=== PATIENT | male | born 1945 | race Caucasian/White ===

== ENCOUNTER 2019-04-25 03:27 | Emergency (ER) | payer OTHER ==
[2019-04-25 04:24] LABS: Basophils % 0.9 % (0-1.3)
[2019-04-25 04:27] LABS: Absolute Lymphocytes (CBC) 0.8 K/uL (0.7-4.9); Hematocrit 45.9 % (39.6-49.0); Lymphocytes % 17.6 % (15.3-44.8); MPV 7.6 fL (7.6-11.3); RBC Red Blood Cell Count 5.68 M/uL (4.33-5.43)
[2019-04-25] MEDS ORDERED: ONDANSETRON 4 MG/2 ML VIAL ONE (04:44)
[2019-04-25] MEDS ORDERED: MORPHINE 2 MG/ML SYR ONE ×2 (04:44→05:55)
[2019-04-25] MEDS ORDERED: NA CHLORIDE 0.9% 1,000 ML ONE (04:44)
[2019-04-25 04:50] LABS: ALT/SGPT 23 U/L (12-78); AST/SGOT 22 U/L (15-37); Albumin 3.9 g/dL (3.4-5.0); Alkaline Phosphatase 97 U/L (45-117); BUN Blood Urea Nitrogen 22 mg/dL (7-18); Bicarbonate 25 mmol/L (21-32); Bilirubin Direct < 0.1 mg/dL (0-0.2); Bilirubin Total 0.4 mg/dL (0.2-1.0); Glucose Level 187 mg/dL (74-106); Lipase 116 U/L (73-393); Potassium 4.2 mmol/L (3.5-5.1); Protein, Total 7.5 g/dL (6.4-8.2); Sodium Level 139 mmol/L (136-145)
--- NOTE | 2019-04-25 06:25 | ER ---
Nurse's Notes [facility] Name: Gavin Fernandes Age: 74 yrs Sex: Male : 1945 Arrival Date: 04/25/2019 Time: 03:29 Bed 17 Private MD: Diagnosis: Low back pain;Urinary tract infection, site not specified Presentation: 04/25 03:43 Presenting complaint: Patient states: low back pain since yesterday and states last aa1 time he had this type of pain it was a kidney stone. Denies any other symptoms at this time. Transition of care: patient was not received from another setting of care. Onset of symptoms was April 24, 2019. Risk Assessment: Do you want to hurt yourself or someone else? Patient reports no desire to harm self or others. Initial Sepsis Screen: Does the patient meet any 2 criteria? No. Patient's initial sepsis screen is negative. Does the patient have a suspected source of infection? No. Patient's initial sepsis screen is negative. Care prior to arrival: None. 03:43 Method Of Arrival: Ambulatory aa1 03:43 Acuity: MARY 3 aa1 Triage Assessment: 03:57 General: Appears in no apparent distress. comfortable, Behavior is calm, cooperative, aa1 appropriate for age. Historical: - Allergies: 03:57 No Known Allergies; aa1 - Home Meds: 03:57 amlodipine 5 mg tab 1 tab once daily [Active]; ascorbic acid (vitamin C) 1,000 mg tab aa1 twice a day [Active]; aspirin 81 mg Oral TbEC 1 tab once daily [Active]; calcium carbonate 500 mg calcium (1,250 mg) Oral chew daily [Active]; cetirizine 10 mg oral tab 1 tab once daily [Active]; cyanocobalamin (vitamin B-12) 5,000 mcg oral TbDL daily [Active]; Lexapro 20 mg Oral tab 1 tab once daily [Active]; everolimus oral oral 2 tabs 2 mg in am and 2.5 mg in pm [Active]; ferrous gluconate 236 mg (27 mg iron) Oral tab daily [Active]; gabapentin 600 mg oral tab twice a day [Active]; Insulin Glargine Sub-Q 20 unit daily [Active]; magnesium oxide 420 mg Oral tab 2 tab twice a day [Active]; metoprolol tartrate 25 mg Oral tab 2 tabs 2 times per day [Active]; Lovaza 1 gram oral cap 1 caps 2 times per day [Active]; Prilosec 40 mg Oral cpDR 1 cap once daily [Active]; tacrolimus 1 mg oral cap 2 cap every 12 hours [Active]; - PMHx: 03:57 Atrial Fib; chronic low platelets; Cirrhosis; hepatic carcinoma; Hepatitis; Diabetes - aa1 IDDM; Depression; Anxiety; Hypertension; Arthritis; - PSHx: 03:57 liver transplant; lariat procedure; aa1 - Immunization history:: Flu vaccine is up to date. Adult Immunizations up to date. - Coronavirus screen:: The patient has NOT traveled to [place] in the past 14 days. Proceed with normal triage process as indicated. The patient has NOT traveled to [place] in the past 14 days. - Social history:: Smoking status: Patient/guardian denies using tobacco, but has a distant history of tobacco abuse, Smoking status: Patient/guardian denies using. - Family history:: not pertinent. - Ebola Screening: : No symptoms or risks identified at this time Patient negative for fever greater than or equal to 101.5 degrees Fahrenheit, and additional compatible Ebola Virus Disease symptoms Patient denies exposure to infectious person. Screenin:56 Abuse screen: Denies threats or abuse. Denies injuries from another. Nutritional wh screening: No deficits noted. Tuberculosis screening: No symptoms or risk factors identified. Fall Risk None identified. Assessment: 03:59 General: Appears in no apparent distress. Pain: Complains of pain in lumbar area, left wh low back and right low back Pain does not radiate. Pain currently is 6 out of 10 on a pain scale. Quality of pain is described as aching, Pain began 1 day ago. Neuro: Level of Consciousness is awake, alert, obeys commands, Oriented to person, place, time, situation, Appropriate for age. Cardiovascular: Heart tones S1 S2. Respiratory: Airway is patent Respiratory effort is even, unlabored, Respiratory pattern is regular, symmetrical, Breath sounds are clear bilaterally. GI: Abdomen is flat, non-distended, Abd is soft and non tender X 4 quads. : No signs and/or symptoms were reported regarding the genitourinary system. EENT: No signs and/or symptoms were reported regarding the EENT system. Derm: Skin is intact, is healthy with good turgor, Skin is pink, warm \T\ dry. normal. Musculoskeletal: Circulation, motion, and sensation intact. 05:00 Reassessment: Patient appears in no apparent distress at this time. No changes from previously documented assessment. Patient and/or family updated on plan of care and expected duration. Pain level reassessed. Patient is alert, oriented x 3, equal unlabored respirations, skin warm/dry/pink. 06:30 Reassessment: Patient appears in no apparent distress at this time. No changes from previously documented assessment. Patient and/or family updated on plan of care and expected duration. Pain level reassessed. Patient is alert, oriented x 3, equal unlabored respirations, skin warm/dry/pink. Patient states feeling better. Patient states symptoms have improved. Vital Signs: 03:56 BP 156 / 87; Pulse 68; Resp 18; Temp 97.9; Pulse Ox 99% ; Weight 80.74 kg; Height 5 ft. 6 in. (167.64 cm); Pain 6/10; 05:01 BP 145 / 79; Pulse 62; Resp 18; Pulse Ox 99% on R/A; 06:30 BP 143 / 74; Pulse 62; Resp 18; Pulse Ox 99% on R/A; 03:56 Body Mass Index 28.73 (80.74 kg, 167.64 cm) ED Course: 03:29 Patient arrived in ED. ag3 03:30 True Alba MD is Attending Physician. rhys 03:33 Ang Dorantes is Primary Nurse. 03:46 Triage completed. aa1 04:02 Arm band placed on right wrist. 04:02 Patient has correct armband on for positive identification. Bed in low position. Call light in reach. Side rails up X 1. Pulse ox on. NIBP on. 04:02 Inserted saline lock: 20 gauge in right antecubital area, using aseptic technique. Blood collected. 05:02 CT Stone Protocol In Process Unspecified. EDMS 06:46 No provider procedures requiring assistance completed. IV discontinued, intact, bleeding controlled, No redness/swelling at site. Administered Medications: 04:36 Drug: NS 0.9% 1000 ml Route: IV; Rate: 1 bolus; Site: right antecubital; 05:59 Follow up: Response: No adverse reaction; IV Status: Completed infusion 04:38 Drug: morphine 2 mg Route: IVP; Site: right antecubital; 04:40 Drug: Zofran 4 mg Route: IVP; Site: right antecubital; 05:59 Follow up: Response: No adverse reaction; Nausea is decreased 05:59 Drug: morphine 2 mg Route: IVP; Site: right antecubital; 05:59 Follow up: Response: No adverse reaction; Pain is decreased; RASS: Alert and Calm (0) 06:35 Drug: Rocephin 1 grams Route: IV; Rate: per protocol; Site: right antecubital; 06:49 Follow up: Response: No adverse reaction; IV Status: Completed infusion Outcome: 06:24 Discharge ordered by MD. joiner 06:46 Discharged to home ambulatory, with family. 06:46 Condition: stable 06:46 Discharge instructions given to patient, family, Instructed on discharge instructions, follow up and referral plans. no drinking with medication, no driving heavy equipment, medication usage, POC Demonstrated understanding of instructions, follow-up care, medications, POC Prescriptions given X 3. 07:09 Patient left the ED. [email or web address] Signatures: Dispatcher [employer] EDMS Dior Tyler RN RN aa1 True Alba MD MD cha Leal, Jahala, RN RN jl7 Ang Dorantes Alice ag3
--- NOTE | 2019-04-25 06:26 | EDPHYS ---
Physician Documentation [facility] Name: Gavin Fernandes Age: 74 yrs Sex: Male : 1945 Arrival Date: 04/25/2019 Time: 03:29 Bed 17 Private MD: MAULIK Physician True Alba HPI: 04/25 03:50 This 74 yrs old Male presents to ER via Ambulatory with complaints of Low rhys Back Pain. 03:50 The patient presents with pain that is acute, with no known mechanism of injury. The rhys symptoms are located in the low back, right low back. The pain does not radiate. The problem was sustained from unknown cause. Onset: The symptoms/episode began/occurred 2 day(s) ago. Modifying factors: The patient symptoms are alleviated by. Associated signs and symptoms: The patient has no apparent associated signs or symptoms. Severity of symptoms: At their worst the symptoms were moderate, in the emergency department the symptoms are unchanged. The patient has not experienced similar symptoms in the past. Historical: - Allergies: 03:57 No Known Allergies; aa1 - Home Meds: 03:57 amlodipine 5 mg tab 1 tab once daily [Active]; ascorbic acid (vitamin C) 1,000 mg tab aa1 twice a day [Active]; aspirin 81 mg Oral TbEC 1 tab once daily [Active]; calcium carbonate 500 mg calcium (1,250 mg) Oral chew daily [Active]; cetirizine 10 mg oral tab 1 tab once daily [Active]; cyanocobalamin (vitamin B-12) 5,000 mcg oral TbDL daily [Active]; Lexapro 20 mg Oral tab 1 tab once daily [Active]; everolimus oral oral 2 tabs 2 mg in am and 2.5 mg in pm [Active]; ferrous gluconate 236 mg (27 mg iron) Oral tab daily [Active]; gabapentin 600 mg oral tab twice a day [Active]; Insulin Glargine Sub-Q 20 unit daily [Active]; magnesium oxide 420 mg Oral tab 2 tab twice a day [Active]; metoprolol tartrate 25 mg Oral tab 2 tabs 2 times per day [Active]; Lovaza 1 gram oral cap 1 caps 2 times per day [Active]; Prilosec 40 mg Oral cpDR 1 cap once daily [Active]; tacrolimus 1 mg oral cap 2 cap every 12 hours [Active]; - PMHx: 03:57 Atrial Fib; chronic low platelets; Cirrhosis; hepatic carcinoma; Hepatitis; Diabetes - aa1 IDDM; Depression; Anxiety; Hypertension; Arthritis; - PSHx: 03:57 liver transplant; lariat procedure; aa1 - Immunization history:: Flu vaccine is up to date. Adult Immunizations up to date. - Coronavirus screen:: The patient has NOT traveled to [place] in the past 14 days. Proceed with normal triage process as indicated. The patient has NOT traveled to [place] in the past 14 days. - Social history:: Smoking status: Patient/guardian denies using tobacco, but has a distant history of tobacco abuse, Smoking status: Patient/guardian denies using. - Family history:: not pertinent. - Ebola Screening: : No symptoms or risks identified at this time Patient negative for fever greater than or equal to 101.5 degrees Fahrenheit, and additional compatible Ebola Virus Disease symptoms Patient denies exposure to infectious person. ROS: 03:50 Constitutional: Negative for fever, chills, and weight loss, Eyes: Negative for injury, rhys pain, redness, and discharge, ENT: Negative for injury, pain, and discharge, Neck: Negative for injury, pain, and swelling, Cardiovascular: Negative for chest pain, palpitations, and edema, Respiratory: Negative for shortness of breath, cough, wheezing, and pleuritic chest pain, Abdomen/GI: Negative for abdominal pain, nausea, vomiting, diarrhea, and constipation, : Negative for injury, bleeding, discharge, and swelling, MS/Extremity: Negative for injury and deformity, Skin: Negative for injury, rash, and discoloration, Neuro: Negative for headache, weakness, numbness, tingling, and seizure, Psych: Negative for depression, anxiety, suicide ideation, homicidal ideation, and hallucinations, Allergy/Immunology: Negative for hives, rash, and allergies, Endocrine: Negative for neck swelling, polydipsia, polyuria, polyphagia, and marked weight changes, Hematologic/Lymphatic: Negative for swollen nodes, abnormal bleeding, and unusual bruising. 03:50 Back: Positive for pain at rest, of the right low back. Exam: 03:50 Constitutional: This is a well developed, well nourished patient who is awake, alert, rhys and in no acute distress. Head/Face: Normocephalic, atraumatic. Eyes: Pupils equal round and reactive to light, extra-ocular motions intact. Lids and lashes normal. Conjunctiva and sclera are non-icteric and not injected. Cornea within normal limits. Periorbital areas with no swelling, redness, or edema. ENT: Nares patent. No nasal discharge, no septal abnormalities noted. Tympanic membranes are normal and external auditory canals are clear. Oropharynx with no redness, swelling, or masses, exudates, or evidence of obstruction, uvula midline. Mucous membranes moist. Neck: Trachea midline, no thyromegaly or masses palpated, and no cervical lymphadenopathy. Supple, full range of motion without nuchal rigidity, or vertebral point tenderness. No Meningismus. Chest/axilla: Normal chest wall appearance and motion. Nontender with no deformity. No lesions are appreciated. Cardiovascular: Regular rate and rhythm with a normal S1 and S2. No gallops, murmurs, or rubs. Normal PMI, no JVD. No pulse deficits. Respiratory: Lungs have equal breath sounds bilaterally, clear to auscultation and percussion. No rales, rhonchi or wheezes noted. No increased work of breathing, no retractions or nasal flaring. Abdomen/GI: Soft, non-tender, with normal bowel sounds. No distension or tympany. No guarding or rebound. No evidence of tenderness throughout. Male : Normal genitalia with no discharge or lesions. Skin: Warm, dry with normal turgor. Normal color with no rashes, no lesions, and no evidence of cellulitis. MS/ Extremity: Pulses equal, no cyanosis. Neurovascular intact. Full, normal range of motion. Neuro: Awake and alert, GCS 15, oriented to person, place, time, and situation. Cranial nerves II-XII grossly intact. Motor strength 5/5 in all extremities. Sensory grossly intact. Cerebellar exam normal. Normal gait. Psych: Awake, alert, with orientation to person, place and time. Behavior, mood, and affect are within normal limits. 03:50 Back: pain, that is mild, that is moderate, ROM is painful, with flexion, with extension, normal spinal alignment noted, CVA tenderness, is absent, vertebral tenderness, is not appreciated, muscle spasm. Vital Signs: 03:56 BP 156 / 87; Pulse 68; Resp 18; Temp 97.9; Pulse Ox 99% ; Weight 80.74 kg; Height 5 ft. 6 in. (167.64 cm); Pain 6/10; 05:01 BP 145 / 79; Pulse 62; Resp 18; Pulse Ox 99% on R/A; wh 06:30 BP 143 / 74; Pulse 62; Resp 18; Pulse Ox 99% on R/A; 03:56 Body Mass Index 28.73 (80.74 kg, 167.64 cm) MDM: 03:30 Patient medically screened. [facility] 03:52 Data reviewed: vital signs, nurses notes, lab test result(s), radiologic studies, CT rhys scan. 04/25 03:59 Order name: Basic Metabolic Panel; Complete Time: 06:20 [facility] 04/25 03:59 Order name: CBC with Diff; Complete Time: 06:20 [facility] 04/25 03:59 Order name: Creatinine for Radiology; Complete Time: 06:20 [facility] 04/25 03:59 Order name: Hepatic Function; Complete Time: 06:20 [facility] 04/25 03:59 Order name: Lipase; Complete Time: 06:20 [facility] 04/25 03:59 Order name: Urine Culture [facility] 04/25 03:59 Order name: IV Saline Lock; Complete Time: 04:37 [facility] 04/25 03:59 Order name: Labs collected and sent; Complete Time: 04:37 [facility] 04/25 04:02 Order name: CT Stone Protocol [facility] 04/25 06:39 Order name: Urine Dipstick--Ancillary (enter results) cm6 04/25 03:59 Order name: Urine Dipstick-Ancillary (obtain specimen); Complete Time: 06:38 [facility] Administered Medications: 04:36 Drug: NS 0.9% 1000 ml Route: IV; Rate: 1 bolus; Site: right antecubital; 05:59 Follow up: Response: No adverse reaction; IV Status: Completed infusion 04:38 Drug: morphine 2 mg Route: IVP; Site: right antecubital; 04:40 Drug: Zofran 4 mg Route: IVP; Site: right antecubital; 05:59 Follow up: Response: No adverse reaction; Nausea is decreased 05:59 Drug: morphine 2 mg Route: IVP; Site: right antecubital; 05:59 Follow up: Response: No adverse reaction; Pain is decreased; RASS: Alert and Calm (0) 06:35 Drug: Rocephin 1 grams Route: IV; Rate: per protocol; Site: right antecubital; 06:49 Follow up: Response: No adverse reaction; IV Status: Completed infusion Disposition: 04/25/19 06:24 Discharged to Home. Impression: Low back pain, Urinary tract infection, site not specified. - Condition is Stable. - Discharge Instructions: Back Pain, Adult, Chronic Back Pain, Musculoskeletal Pain, Back Injury Prevention, [id number], Urinary Tract Infection, Adult, [id number], Back Pain, Adult, [id number], Back Exercises, [id number]-ia-[id number]. - Prescriptions for Tylenol- Codeine #3 300-30 mg Oral Tablet - take 2 tablet by ORAL route every 6 hours As needed; 30 tablet. Valium 5 mg Oral Tablet - take 1 tablet by ORAL route every 8 hours As needed; 15 tablet. Cipro 250 mg Oral Tablet - take 1 tablet by ORAL route every 12 hours for 7 days; 14 tablet. - Medication Reconciliation Form, Thank You Letter, Antibiotic Education, Prescription Opioid Use form. - Follow up: Private Physician; When: 2 - 3 days; Reason: Recheck today's complaints, Continuance of care, Re-evaluation by your physician. - Problem is new. - Symptoms have improved. Signatures: Dispatcher [employer] EDMS Dior Tyler RN RN [email or web address] True Alba MD MD cha Leal, Jahala, RN RN jl7 Ang Dorantes Corrections: (The following items were deleted from the chart) 06:37 06:24 04/25/2019 06:24 Discharged to Home. Impression: Low back pain. Condition is rhys Stable. Forms are Medication Reconciliation Form, Thank You Letter, Antibiotic Education, Prescription Opioid Use. Follow up: Private Physician; When: 2 - 3 days; Reason: Recheck today's complaints, Continuance of care, Re-evaluation by your physician. Problem is new. Symptoms have improved. rhys 07:09 06:37 04/25/2019 06:24 Discharged to Home. Impression: Low back pain; Urinary tract jl7 infection, site not specified. Condition is Stable. Discharge Instructions: Back Pain, Adult, Chronic Back Pain, Musculoskeletal Pain, Back Injury Prevention, [id number], Back Pain, Adult, [id number]-[id number], Back Exercises, Yyzt-[id number]. Prescriptions for Tylenol-Codeine #3 300-30 mg Oral Tablet - take 2 tablet by ORAL route every 6 hours As needed; 30 tablet, Valium 5 mg Oral Tablet - take 1 tablet by ORAL route every 8 hours As needed; 15 tablet. and Forms are Medication Reconciliation Form, Thank You Letter, Antibiotic Education, Prescription Opioid Use. Follow up: Private Physician; When: 2 - 3 days; Reason: Recheck today's complaints, Continuance of care, Re-evaluation by your physician. Problem is new. Symptoms have improved. rhys
[2019-04-25] MEDS ORDERED: CEFTRIAXONE/SWI 1gm 1 GM/10 ML SYR ONE (06:41)
[2019-04-25 07:19] VITALS: TEMP 97.9; O2SAT 99
[2019-04-25 07:21] VITALS: BP 143/74
[2019-04-25 07:45] LABS: Urine Blood TRACE (NEG); Urine Glucose NEGATIVE (NEG); Urine Protein NEGATIVE (NEG); Urine pH 5.5 (5.0-7.0)
--- NOTE | 2019-04-25 10:38 | RAD REPORT ---
EXAM DESCRIPTION: CT ABDOMEN AND PELVIS WITHOUT CONTRAST CLINICAL HISTORY: FLANK PAIN COMPARISON: CT abdomen and pelvis with contrast 07/06/2016 TECHNIQUE: Axial unenhanced CT imaging of the abdomen and pelvis performed. Reformatted coronal and sagittal images reviewed. A dose reduction technique was utilized with automated exposure control according to patient size. FINDINGS: Lung bases are clear. Heart is normal in size. Normal liver. Gallbladder has been resected. The common bile duct is dilated to 1.5 cm due to cholecy stectomy status. Spleen is enlarged to 14 cm. Normal pancreas. Normal adrenal glands. Bilateral renal cysts. Bilateral renal pelvic stones. Largest is in the left renal pelvis, 1.1 cm. La rgest renal cyst is in the posterior right kidney, 4.2 cm. No hydronephrosis. The abdominal aorta and inferior vena cava are normal in caliber. Mild aortic atherosclerosis. No karthik nopathy. Small hiatal hernia. Normal remaining stomach. Small bowel loops appear normal. Unremarkable colon. Normal appendix identified in the right lower quadrant. No ascites or free air. Left anterior ventral abdominal wall hernia lateral to the left rectus. Unremarkable bladder. The prostate contains dystrophic calcifications. Pelvic free fluid or adenopath y. Moderate lower thoracic and lumbar degenerative change. No subluxation. Intact bony pelvis. Normal hips. IMPRESSION: 1. Small hiatal hernia. 2. Bilateral renal cysts. Nonobstructing bilateral nephroliths up to 1.1 cm. 3. Mild splenomegaly. 4. Small fat-containing ventral abdominal wall hernias without incarceration. Electronically signed by: Ila Estevez DO 04/25/2019 5:13 AM CHAIR INSPECTOR Due to temporary technical issues with the PACS/Fluency reporting system, reports are being signed by the in house radiologist as a courtesy to ensure prompt reporting. The interpreting radiologist is f ully responsible for the content of the report.
== END 2019-04-25 07:09 | disposition home or self-care (01) ==
LOC: ER 03:27
DX: N39.0 Urinary tract infection, site not specified (principal); I10 Essential (primary) hypertension; I48.91 Unspecified atrial fibrillation; E11.9 Type 2 diabetes mellitus without complications; F32.9 Major depressive disorder, single episode, unspecified; Z79.82 Long term (current) use of aspirin; Z79.4 Long term (current) use of insulin; Z94.4 Liver transplant status; Z85.05 Personal history of malignant neoplasm of liver
CPT/HCPCS: 96361; 87088; 85025; 87086; 80048; 36415; 80076; 81003; 83690; 76377; 74176; 96375; 96374; 99284; J2270 ×2; J0696; J7030; J2405

== ENCOUNTER 2021-03-17 17:13 | Emergency (ER) | payer OTHER ==
--- OUTSIDE RECORDS SUMMARY | 2021-03-17 17:16 | XMS REPORT | Continuity of Care Document ---
:1945 Author Organization [facility] Address [address] [place] [address] Dr. Olivares [address] [place] [address] Care Team Providers Name Role Phone DAMON Attending Clinician Unavailable CAMMIE Attending Clinician Unavailable ROSARIO Attending Clinician Unavailable Problems This patient has no known problems. Allergies, Adverse Reactions, Alerts This patient has no known allergies or adverse reactions. Medications This patient has no known medications. Procedures This patient has no known procedures. Encounters Start End Encounter Admission Attending Care Care Encounter Source Date/Time Date/Time Type Type Clinicians Facility Department ID 2020-11-26 2020-11-26 Outpatient [facility] [id number] [place] 00:00:00 00:00:[address] 2020-11-19 2020-11-19 Outpatient DAMON, [facility] [id number] [place] 00:00:00 00:00:00 ELMIRA [address] 2020-10-21 2020-10-21 Outpatient DAMON, [facility] [id number] [place] 00:00:00 00:00:00 ELMIRA [address] 2020-07-23 2020-07-23 Outpatient DAMON, [facility] [id number] [place] 00:00:00 00:00:00 ELMIRA [address] 2020-06-23 2020-06-23 Outpatient DAMON, [facility] [id number] [place] 00:00:00 00:00:00 ELMIRA [address] 2020-05-07 2020-05-07 Outpatient GALATI, [facility] [id number] [place] 00:00:00 00:00:00 JESÚS [address] 2020-05-02 2020-05-02 Outpatient DAMON, [facility] [id number] [place] 00:00:00 00:00:00 RAFIK [facility] 2020-05-02 2020-05-02 Outpatient DAMON, [facility] [id number] [place] 00:00:00 00:00:00 RAFIK [facility] 2020-05-02 2020-05-02 Outpatient DAMON, [facility] [id number] [place] 00:00:00 00:00:00 RAFIK [facility] 2020-05-02 2020-05-02 Outpatient DAMON, [facility] [id number] [place] 00:00:00 00:00:00 RAFIK 473 [facility] 2020-05-02 2020-05-02 Outpatient DAMON, [facility] [id number] [place] 00:00:00 00:00:00 RAFIK 475 [facility] 2020-05-02 2020-05-02 Outpatient DAMON, [facility] [id number] [place] 00:00:00 00:00:00 RAFIK 477 [facility] 2020-05-02 2020-05-02 Outpatient DAMON, [facility] [id number] [place] 00:00:00 00:00:00 RAFIK 471 [facility] 2020-01-14 2020-01-14 Outpatient DAMON, [facility] [id number] [place] 00:00:00 00:00:00 RAFIK 086 [facility] 2020-01-14 2020-01-14 Outpatient PONCE, [facility] [id number] [place] 00:00:00 00:00:00 CLAY 464 [facility] 2019-11-23 2019-11-23 Outpatient DAMON, [facility] [id number] [place] 00:00:00 00:00:00 RAFIK 361 [facility] 2019-11-16 2019-11-16 Outpatient DAMON, [facility] [id number] [place] 00:00:00 00:00:00 RAFIK 867 [facility] 2019-11-07 2019-11-07 Outpatient GALATI, [facility] [id number] [place] 00:00:00 00:00:00 JESÚS 303 [facility] 2019-10-24 2019-10-24 Outpatient DAMON, [facility] [id number] [place] 00:00:00 00:00:00 RAFIK 641 [facility] 2019-10-24 2019-10-24 Outpatient DAMON, [facility] [id number] [place] 00:00:00 00:00:00 RAFIK 988 [facility] 2019-10-24 2019-10-24 Outpatient DAMON, [facility] [id number] [place] 00:00:00 00:00:00 RAFIK 987 [facility] 2019-07-16 2019-07-16 Outpatient DAMON, [facility] [id number] [place] 00:00:00 00:00:00 RAFIK 228 [facility] 2019-05-02 2019-05-02 Outpatient GALATI, [facility] [id number] [place] 00:00:00 00:00:00 JESÚS 111 [facility] 2019-04-20 2019-04-20 Outpatient DAMON, [facility] [id number] [place] 00:00:00 00:00:00 RAFIK 317 [facility] 2019-04-20 2019-04-20 Outpatient DAMON, [facility] [id number] [place] 00:00:00 00:00:00 RAFIK 315 [facility] 2018-12-28 2018-12-28 Outpatient DAMON, [facility] [id number] [place] 00:00:00 00:00:00 RAFIK 186 [facility] 2018-12-28 2018-12-28 Outpatient DAMON, [facility] [id number] [place] 00:00:00 00:00:00 RAFIK 356 [facility] 2018-12-28 2018-12-28 Outpatient DAMON, [facility] [id number] [place] 00:00:00 00:00:00 RAFIK 821 [facility] 2018-12-28 2018-12-28 Outpatient DAMON, [facility] [id number] [place] 00:00:00 00:00:00 RAFIK 456 [facility] 2018-12-28 2018-12-28 Outpatient DAMON, [facility] [id number] [place] 00:00:00 00:00:00 RAFIK 455 [facility] 2018-12-28 2018-12-28 Outpatient DAMON, [facility] [id number] [place] 00:00:00 00:00:00 ELMIR[facility] Results This patient has no known results.
[2021-03-17 18:06] LABS: Absolute Lymphocytes (CBC) 1.2 K/uL (0.7-4.9); Hematocrit 46.6 % (39.6-49.0); Lymphocytes % 22.6 % (15.3-44.8); MPV 7.4 fL (7.6-11.3)
[2021-03-17 18:11] LABS: Protime INR 1.07
[2021-03-17 18:22] LABS: Albumin 3.6 g/dL (3.4-5.0); Bilirubin Direct 0.1 mg/dL (0-0.2); Bilirubin Total 0.7 mg/dL (0.2-1.0); Potassium 3.9 mmol/L (3.5-5.1); Protein, Total 7.7 g/dL (6.4-8.2)
--- NOTE | 2021-03-17 19:09 | RAD REPORT ---
EXAM DESCRIPTION: CT - Abdomen Pelvis W Contrast - 03/17/2021 6:40 pm CLINICAL HISTORY: ABD PAIN, hepatitis and cirrhosis history of liver transplant COMPARISON: Abdomen Pelvis W Contrast dated 07/06/2016; Stone Protocol dated 04/25/2019 TECHNIQUE: Biphasic, helical CT imaging of the abdomen and pelvis was performed following 100 ml non -ionic IV contrast. No oral contrast was administered. All CT scans are performed using dose optimization technique as appropriate and may include automated exposure control or mA/KV adjustment according to patient size. FINDINGS: No suspicious findings in the lung bases. Transplant liver shows normal enhancement pattern with no focal parenchymal lesion. No portal vein ab normality. Numerous surgical clips present related to the transplant procedure. Pancreas and spleen show no suspicious findings. Gallbladder is absent. No biliary tree dilatation. Symmetric renal function is seen with no hydronephrosis or suspicious renal mass. No pyelonephritis o r acute parenchymal process. Multiple variably sized simple renal cysts are present. A 12 x 8 mm nono bstructing calculus is present in the left renal pelvis. Is not changed size or position since 2019. No adrenal abnormalities. No acute urinary bladder finding. No bladder stones seen. Small hiatal hernia is present similar to the 2017 study. No acute stomach or small bowel finding. Ap pendix is normal. No acute colon process seen. Mild mucosal level colitis changes can be below CT res olution. No free air, free fluid or inflammatory stranding. No mass or bulky lymphadenopathy. Patient has multiple midline and left-side supraumbilical ventral hernias. The inferolateral most her sobia on the left contains a loop of small bowel that has no acute component. The superior aspect of th e hernia complex contains the mid transverse colon, also without acute component. Hernia defects are new from 2017. Liver transplant occurred between 2017 on the current study. No suspicious bony findings. IMPRESSION: Contrast enhanced CT abdomen and pelvis showing no acute or emergent finding. No colon or other GI abnormality seen as a source for the GI findings. Liver transplant shows normal vascular and parenchymal enhancement pattern. Numerous midline and left-side supraumbilical ventral hernias containing both mid transverse colon an d small bowel loops. There is no acute bowel or fat abnormalities regarding these multiple hernias.
[2021-03-17 21:14] LABS: Hematocrit 44.1 % (39.6-49.0)
--- NOTE | 2021-03-17 21:29 | EDPHYS ---
Physician Documentation [facility] Name: Gavin Fernandes Age: 76 yrs Sex: Male : 1945 Arrival Date: 03/17/2021 Time: 17:14 Bed 23 Private MD: ED Physician Darell Torrez HPI: 03/17 17:43 This 76 yrs old Male presents to ER via EMS with complaints of Black/Tarry Stools. cp 17:44 The patient presents to the emergency department with rectal bleeding, melena, with cp multiple such episodes. Onset: The symptoms/episode began/occurred 1 day(s) ago. Abdominal pain: described as achy, located in the right lower quadrant and left lower quadrant, that does not radiate. Associated signs and symptoms: Pertinent positives: diarrhea, Pertinent negatives: chest pain, constipation, fever, shortness of breath, syncope, vomiting. Severity of symptoms: in the emergency department the symptoms are unchanged despite home interventions. 17:44 Patient c/o dizziness and reports dizziness is chronic and that he takes meclizine. cp Historical: - Allergies: 17:14 No Known Allergies; ss - Home Meds: 17:24 amlodipine 10 mg oral tab once daily [Active]; gabapentin 600 mg Oral tab twice a day iw [Active]; omeprazole 20 mg Oral cpDR 2 caps once daily [Active]; azelastine 137 mcg (0.1 %) nasal spra 1 spray 2 times per day [Active]; tacrolimus 1 mg oral cap every 12 hours [Active]; Zortress 0.5 mg oral tab 2 tabs 2 times per day [Active]; melatonin 10 mg Oral tab nightly [Active]; Thiamine 150 mg Oral daily [Active]; [place]-3 oral cap twice a day [Active]; losartan 25 mg oral tab 1 tab once daily [Active]; Clobetasol Propionate Topical 2 times per day [Active]; triamcinolone acetonide 0.025 % Topical crea 2 times per day [Active]; - PMHx: 17:14 Anxiety; Cirrhosis; chronic low platelets; Atrial Fib; Arthritis; Depression; Diabetes ss - IDDM; hepatic carcinoma; Hepatitis; Hypertension; - PSHx: 17:24 liver transplant; cardiac ablation; iw - Immunization history:: Adult Immunizations unknown. - Social history:: Smoking status: unknown. ROS: 17:45 Constitutional: Negative for body aches, chills, fever, poor PO intake. cp 17:45 Eyes: Negative for injury, pain, redness, and discharge. cp 17:45 ENT: Negative for ear pain, sore throat, difficulty swallowing, difficulty handling secretions. 17:45 Cardiovascular: Negative for chest pain, edema, palpitations. 17:45 Respiratory: Negative for cough, shortness of breath, wheezing. 17:45 Abdomen/GI: Positive for abdominal pain, nausea, diarrhea, black/tarry stool, Negative for vomiting, constipation, anorexia. 17:45 Back: Negative for pain at rest, pain with movement. 17:45 : Negative for urinary symptoms, testicular pain 17:45 Neuro: Positive for dizziness, Negative for altered mental status, headache, loss of consciousness, syncope, weakness. 17:45 All other systems are negative. Exam: 17:50 Constitutional: The patient appears in no acute distress, alert, awake, comfortable, cp non-diaphoretic, non-toxic, well developed, well nourished. 17:50 Head/Face: Normocephalic, atraumatic. cp 17:50 Eyes: Periorbital structures: appear normal, Conjunctiva: normal, no exudate, no injection, Sclera: no appreciated abnormality, Lids and lashes: appear normal, bilaterally. 17:50 ENT: External ear(s): are unremarkable, Nose: is normal, Mouth: Lips: moist, Oral mucosa: moist, Posterior pharynx: Airway: no evidence of obstruction, patent. 17:50 Neck: ROM/movement: is normal, is supple, without pain, no range of motions limitations. 17:50 Chest/axilla: Inspection: normal, Palpation: is normal, no crepitus, no tenderness. 17:50 Cardiovascular: Rate: normal, Rhythm: regular, Edema: is not appreciated, JVD: is not appreciated. 17:50 Respiratory: the patient does not display signs of respiratory distress, Respirations: normal, no use of accessory muscles, no retractions, labored breathing, is not present, Breath sounds: are clear throughout, no decreased breath sounds, no stridor, no wheezing. 17:50 Abdomen/GI: Inspection: scar(s), are noted in the upper midline and extending mid abdomen bilaterally, Bowel sounds: active, all quadrants, Palpation: soft, in all quadrants, mild abdominal tenderness, in the right lower quadrant and left lower quadrant, rebound tenderness, is not appreciated, voluntary guarding, is not appreciated, involuntary guarding, is not appreciated. 17:50 Back: pain, is absent, ROM is normal. 17:50 Neuro: Orientation: to person, place \\T\\ time. Mentation: is normal, Motor: moves all fours, strength is normal, Sensation: is normal. 19:12 ECG was reviewed by the Attending Physician. cp 20:00 Abdomen/GI: Rectal exam: rectal tone normal, Stool: brown, guaiac negative. cp Vital Signs: 17:22 BP 147 / 99; Pulse 62; Resp 16; Temp 98.6; Pulse Ox 98% on R/A; iw 19:56 BP 141 / 87; Pulse 59; Resp 16; Pulse Ox 99% on R/A; iw MDM: 17:43 Patient medically screened. cp 18:00 Differential diagnosis: gastritis, diverticulitis, hemorrhoids, varices, upper GI bleed.cp 21:28 Data reviewed: vital signs, nurses notes, lab test result(s), EKG, radiologic studies, cp CT scan, plain films. 21:28 Test interpretation: by ED physician or midlevel provider: ECG, plain radiologic cp studies. ED course: VSS. Initial and repeat H/H returned within normal range. Upon further interview, patient admits to taking OTC Pepto Bismol for abdomen pain. I informed him that this could cause dark, tarry stools. Recommend avoiding Pepto, continue to monitor and f/u with GI. Stool guaiac negative. Will discharge to home for continued monitoring. 03/17 17:28 Order name: Basic Metabolic Panel rn 03/17 17:28 Order name: CBC with Diff rn 03/17 17:28 Order name: Hepatic Function rn 03/17 17:28 Order name: Lipase rn 03/17 17:28 Order name: Protime (+inr); Complete Time: 18:25 rn 03/17 17:28 Order name: Ptt, Activated; Complete Time: 18:25 rn 03/17 17:28 Order name: Type And Screen; Complete Time: 21:27 rn 03/17 17:28 Order name: COVID-19 SARS RT PCR (Document "Date of Onset" if Symptomatic); Complete rn Time: 19:23 03/17 17:29 Order name: Basic Metabolic Panel; Complete Time: 18:25 EDMS 03/17 18:25 Interpretation: Normal except: GLUC 138; BUN 20; GFR 57. 03/17 17:29 Order name: CBC with Automated Diff; Complete Time: 18:25 EDMS 03/17 18:26 Interpretation: Normal except: RBC 5.90; MCV 79.0; MCH 26.0; PLT 151; MPV 7.4. 03/17 17:29 Order name: Liver (Hepatic) Function; Complete Time: 18:25 EDMS 03/17 18:26 Interpretation: Normal except: GLOB 4.1; A/G 0.9. 03/17 17:29 Order name: Lipase; Complete Time: 18:25 EDMS 03/17 18:26 Interpretation: LIP 62; Reviewed. 03/17 17:28 Order name: IV Saline Lock; Complete Time: 18:22 rn 03/17 17:28 Order name: Labs collected and sent; Complete Time: 18:22 rn 03/17 17:41 Order name: CT Abd/Pelvis - IV Contrast Only; Complete Time: 19:23 03/17 17:45 Order name: EKG; Complete Time: 17:46 03/17 17:45 Order name: EKG - Nurse/Tech; Complete Time: 19:15 03/17 18:18 Order name: Labs - recollect needed: recollect type and screen,ian pt.; Complete bd Time: 19:15 03/17 21:04 Order name: Hemoglobin 03/17 21:04 Order name: Hematocrit 03/17 21:04 Order name: Hemoglobin; Complete Time: 21:27 EDMS 03/17 21:04 Order name: Hematocrit; Complete Time: 21:27 EDMS EC:12 Rate is 62 beats/min. Rhythm is irregular. QRS interval is normal. QT interval is cp normal. Interpreted by me. Reviewed by me. Administered Medications: No medications were administered Disposition: 03/18 07:04 Co-signature as Attending Physician, Darell Torrez MD I agree with the assessment and rn plan of care. Attestation: The patient's history, exam findings, diagnostics, and a summary of any interventions or procedures was reviewed in detail with True SIMMONS. Disposition Summary: 03/17/21 21:28 Discharge Ordered Location: Home cp Problem: new cp Symptoms: have improved cp Condition: Stable cp Diagnosis - Diarrhea, unspecified cp - Abdominal pain, unspecified cp Followup: cp - With: Private Physician - When: 2 - 3 days - Reason: Recheck today's complaints Discharge Instructions: - Discharge Summary Sheet cp - Abdominal Pain, Adult cp - Food Choices to Help Relieve Diarrhea, Adult cp - Diarrhea, Adult cp Forms: - Medication Reconciliation Form cp - Thank You Letter cp - Antibiotic Education cp - Prescription Opioid Use cp Signatures: Dispatcher [employer] EDSonia Guo Irene, RN RN iw Darell Torrez MD MD rn Smirch, Shelby, RN RN ss True Salamanca, TROY PA cp Corrections: (The following items were deleted from the chart) 03/17 17:40 17:14 PMHx: awaiting liver transplant; jacek riddle
--- NOTE | 2021-03-17 21:29 | ER ---
Nurse's Notes [facility] Name: Gavin Fernandes Age: 76 yrs Sex: Male : 1945 Arrival Date: 03/17/2021 Time: 17:14 Bed 23 Private MD: Diagnosis: Diarrhea, unspecified;Abdominal pain, unspecified Presentation: 03/17 17:22 Chief complaint: Patient states: black tarry stool X 1 week, also has lower abd pain, iw hx of liver transplant in 2007 , was advised by his doctor to be evaluated in ER. Coronavirus screen: At this time, the client does not indicate any symptoms associated with coronavirus-19. Ebola Screen: Patient negative for fever greater than or equal to 101.5 degrees Fahrenheit, and additional compatible Ebola Virus Disease symptoms Patient denies exposure to infectious person. Patient denies travel to an Ebola-affected area in the 21 days before illness onset. No symptoms or risks identified at this time. Initial Sepsis Screen: Does the patient meet any 2 criteria? No. Patient's initial sepsis screen is negative. Does the patient have a suspected source of infection? No. Patient's initial sepsis screen is negative. Risk Assessment: Do you want to hurt yourself or someone else? Patient reports no desire to harm self or others. Onset of symptoms was March 10, 2020. 17:22 Method Of Arrival: EMS iw 17:22 Acuity: MARY 3 iw Historical: - Allergies: 17:14 No Known Allergies; - Home Meds: 17:24 amlodipine 10 mg oral tab once daily [Active]; gabapentin 600 mg Oral tab twice a day iw [Active]; omeprazole 20 mg Oral cpDR 2 caps once daily [Active]; azelastine 137 mcg (0.1 %) nasal spra 1 spray 2 times per day [Active]; tacrolimus 1 mg oral cap every 12 hours [Active]; Zortress 0.5 mg oral tab 2 tabs 2 times per day [Active]; melatonin 10 mg Oral tab nightly [Active]; Thiamine 150 mg Oral daily [Active]; [place]-3 oral cap twice a day [Active]; losartan 25 mg oral tab 1 tab once daily [Active]; Clobetasol Propionate Topical 2 times per day [Active]; triamcinolone acetonide 0.025 % Topical crea 2 times per day [Active]; - PMHx: 17:14 Anxiety; Cirrhosis; chronic low platelets; Atrial Fib; Arthritis; Depression; Diabetes ss - IDDM; hepatic carcinoma; Hepatitis; Hypertension; - PSHx: 17:24 liver transplant; cardiac ablation; iw - Immunization history:: Adult Immunizations unknown. - Social history:: Smoking status: unknown. Screenin:23 Abuse screen: Denies threats or abuse. Denies injuries from another. Nutritional iw screening: No deficits noted. Tuberculosis screening: No symptoms or risk factors identified. Fall Risk IV access (20 points). Assessment: 18:00 General: Appears in no apparent distress. Behavior is calm, cooperative. Pain: iw Complains of pain in left lower quadrant and right lower quadrant. Neuro: Level of Consciousness is awake, alert, obeys commands, Oriented to person, place, time, situation, Moves all extremities. Full function. Cardiovascular: Patient's skin is warm and dry. Respiratory: Respiratory effort is even, unlabored, Respiratory pattern is regular, symmetrical. GI: Abdomen is non-distended, Reports lower abdominal pain. GI: Reports bloody stool. Derm: Skin is intact, is healthy with good turgor. Musculoskeletal: Range of motion: intact in all extremities. Vital Signs: 17:22 BP 147 / 99; Pulse 62; Resp 16; Temp 98.6; Pulse Ox 98% on R/A; iw 19:56 BP 141 / 87; Pulse 59; Resp 16; Pulse Ox 99% on R/A; iw ED Course: 17:14 Patient arrived in ED. ss 17:14 Arm band placed on right wrist. ss 17:24 Triage completed. iw 17:40 True Salamanca PA is PHCP. cp 17:41 Darell Torrez MD is Attending Physician. cp 17:41 Myra Wang, FREYA is Primary Nurse. iw 18:00 Inserted saline lock: 20 gauge in right antecubital area, using aseptic technique. iw Blood collected. 18:40 CT Abd/Pelvis - IV Contrast Only In Process Unspecified. EDMS 21:55 No provider procedures requiring assistance completed. IV discontinued, intact, iw bleeding controlled, No redness/swelling at site. Pressure dressing applied. 21:56 Patient has correct armband on for positive identification. iw Administered Medications: No medications were administered Outcome: 21:28 Discharge ordered by . cp 21:55 Discharged to home ambulatory, with family. iw 21:55 Condition: good 21:55 Discharge instructions given to patient, Instructed on discharge instructions, follow up and referral plans. Demonstrated understanding of instructions, follow-up care. 21:56 Patient left the ED. iw Signatures: Dispatcher [employer] EDMyra Chris RN RN iw Smirch, Shelby, RN RN ss Page, Corey, PA TROY cp Corrections: (The following items were deleted from the chart) 17:40 17:14 PMHx: awaiting liver transplant; janessa
[2021-03-17 22:24] VITALS: TEMP 98.6
[2021-03-17 22:25] VITALS: BP 141/87; O2SAT 99
--- NOTE | 2021-03-18 07:47 | EKG ---
Test Date: 2021-03-17 Test Time: 19:06:47 Oil Expeller Operator: YOVANI MEASUREMENT RESULTS: Intervals: Rate: 62 TX: QRSD: 88 QT: 424 QTc: 430 Girard: P: TX: QRS: 17 T: 20 INTERPRETIVE STATEMENTS: Atrial fibrillation Abnormal ECG Compared to ECG 07/06/2016 20:19:09 Prolonged QT interval no longer present Electronically Signed On 03-18-21 07:45:38 DISTILLERY WORKER by Harvey Crystal
== END 2021-03-17 21:56 | disposition home or self-care (01) ==
LOC: ER 17:13
DX: R19.7 Diarrhea, unspecified (principal); I10 Essential (primary) hypertension; E11.9 Type 2 diabetes mellitus without complications; Z20.822 Contact with and (suspected) exposure to COVID-19; Z94.4 Liver transplant status
CPT/HCPCS: 93005; 85025; 80048; 36415; 86900; 86850; 85610; 86901; 80076; 85730; 85018; 85014; 83690; 74177; 99284; U0003; Q9967

== ENCOUNTER 2023-10-28 07:30 | Inpatient (IN) | payer OTHER ==
[2023-10-28] MEDS ORDERED: TICAGRELOR 90 MG TABLET PO ONE ×2 (08:38→08:44)
[2023-10-28] MEDS ORDERED: ASPIRIN 325 MG TAB ONE ×2 (08:38→08:44)
[2023-10-28 08:39] LABS: Absolute Basophils 0.1 K/uL (0-0.5); Absolute Lymphocytes (CBC) 1.4 K/uL (0.7-4.9); Absolute Monocytes 1.1 K/uL (0.1-1.3); Absolute Neutrophil 16.8 K/uL (1.8-8.0); Basophils % 0.5 % (0-1.3); Hematocrit 49.2 % (39.6-49.0); Hemoglobin 16.3 g/dL (13.6-17.9); Lymphocytes % 7.4 % (15.3-44.8); MCH 27.3 pg (27.0-35.0); MCV 82.6 fL (80-100); MPV 7.9 fL (7.6-11.3); Monocytes % 5.5 % (3.3-12.3); Neutrophils % 86.6 % (41.7-73.7); Nucleated Red Blood Cells % 0.1 % (0-0); Platelets 202 thou/uL (152-406); RBC Red Blood Cell Count 5.96 M/uL (4.33-5.43); Red Cell Distribution Width 16.8 % (12.1-15.2)
[2023-10-28] MEDS ORDERED: LIDOCAINE 1% 20 ML MDV ONE (08:43)
[2023-10-28] MEDS ORDERED: HEPA 1000U/500MLS 2,000 UNIT/1,000 ML BAG IV ONE (08:43)
[2023-10-28] MEDS ORDERED: MIDAZOLAM HCL 2 MG/2 ML INJ ONE (08:43)
--- NOTE | 2023-10-28 08:43 | EDPHYS ---
Physician Documentation [facility] Name: Gavin Fernandes Age: 78 yrs Sex: Male : 1945 Arrival Date: 10/28/2023 Time: 07:30 Bed 5 Private MD: ED Physician Darell Torrez HPI: 10/27 08:16 This 78 yrs old Male presents to ER via Wheelchair with complaints of Breathing rn Difficulty, Nausea/Vomiting/Diarrhea. 08:16 The patient presents to the emergency department with nausea, vomiting, diarrhea, rn abdominal pain. Onset: The symptoms/episode began/occurred 3 day(s) ago. Possible causes: unknown. The symptoms are aggravated by nothing. The symptoms are alleviated by nothing. Severity of symptoms: At their worst the symptoms were moderate in the emergency department the symptoms are unchanged. The patient has not experienced similar symptoms in the past. Patient and report nausea/vomiting/diarrhea, nonbloody, for 3 days now. No fever but is having chills and using electric blanket to keep himself warm at home. Reports runny nose and congestion along with cough with fatigue and headache. Patient is a liver transplant patient 6 years ago and still taking rejection medication. Denies chest pain.. Historical: - Allergies: 07:49 No Known Allergies; ap3 - PMHx: 07:49 Anxiety; Arthritis; Atrial Fib; chronic low platelets; Cirrhosis; Depression; Diabetes ap3 - IDDM; hepatic carcinoma; Hepatitis; Hypertension; - PSHx: 07:49 Cardiac Ablation; liver transplant; ap3 - Immunization history:: Client reports receiving the 2nd dose of the Covid vaccine. - Infectious Disease History:: Denies. - Social history:: Smoking status: Patient denies any tobacco usage or history of. - Family history:: not pertinent. - Hospitalizations: : No recent hospitalization is reported. ROS: 08:16 Constitutional: Negative for fever, positive for chills Cardiovascular: Negative for rn chest pain, palpitations, and edema Respiratory: Positive for cough Abdomen/GI: Positive for abdominal pain with nausea/vomiting/diarrhea MS/Extremity: Negative for injury and deformity, Skin: Negative for injury, rash, and discoloration, Neuro: Negative for headache, weakness, numbness, tingling, and seizure, Exam: 08:16 Constitutional: This is a well developed, well nourished patient who is awake, alert, rn and in no acute distress. ENT: dry MM Cardiovascular: Bradycardic, irregular Respiratory: Speaking full sentences, unlabored. No increased work of breathing, no retractions or nasal flaring. Abdomen/GI: Soft, mild left lower quadrant abdominal tenderness. MS/ Extremity: Pulses equal, no cyanosis. Neurovascular intact. Full, normal range of motion. Equal circumference. Neuro: Awake and alert, GCS 15 08:38 ECG was reviewed by the Attending Physician. rn Vital Signs: 07:47 BP 138 / 84; Pulse 58; Resp 18; Temp 98.3(TE); Pulse Ox 99% on R/A; Weight 85.28 kg ap3 (R); Height 5 ft. 6 in. ; 09:00 BP 135 / 97; Pulse 61; Resp 19; Pulse Ox 99% on R/A; iw 07:47 Body Mass Index 30.34 (85.28 kg, 167.64 cm) ap3 MDM: 07:40 Patient medically screened. rn 08:27 ED course: EKG shows ST elevation in the inferior and lateral leads, reevaluated rn patient and still denies any chest pain. Sending EKG to his show card writer. Patient still complains mostly of vomiting and diarrhea with abdominal pain and seems more like an abdominal issue.. 08:38 Management of patient was discussed with the following: Blade Bender Furnace Tender: Discussed case with rn Dr. Rae, show card writer, will take to Patient Access Coordinator, request aspirin/Brilinta/heparin. 08:38 Differential diagnosis: Nonspecific abd pain, gastritis, diverticulitis, viral rn gastroenteritis, gastroenteritis, COVID, colitis, WI. Data reviewed: vital signs, nurses notes, lab test result(s), EKG, radiologic studies, and as a result, I will admit patient. Consideration of Admission/Observation Patient was admitted/placed on observation. Escalation of care including admission/observation considered. 08:40 Care significantly affected by the following chronic conditions: Diabetes, rn Hypertension. Counseling: I had a detailed discussion with the patient and/or guardian regarding the historical points, exam findings, and any diagnostic results supporting the discharge/admit diagnosis, lab results, the need for further work-up and treatment in the hospital. Response to treatment: the patient's symptoms have mildly improved after treatment, and as a result, I will admit patient. ED course: I personally spent 35 minutes engaged in work directly related to the individual patient's care. This does not include any time spent performing procedures. The patient has been deemed critically ill because of ST elevation on ECG requiring emergent cath, cardiology consultation, emergent organization of cath. 10/27 07:54 Order name: Blood Culture Adult (2) rn 10/27 07:54 Order name: CBC with Diff rn 10/27 07:54 Order name: CMP rn 10/27 07:54 Order name: Lactate w/ 2H reflex if indic. rn 10/27 07:54 Order name: Protime (+inr) rn 10/27 07:54 Order name: Ptt, Activated rn 10/27 07:54 Order name: Urinalysis w/ reflexes rn 10/27 07:54 Order name: SARS RAPID rn 10/27 07:54 Order name: Flu rn 10/27 08:20 Order name: LAB Add On eb 10/27 08:29 Order name: Troponin High Sensitivity EDGA 10/27 08:29 Order name: NT PRO-BNP EDGA 10/27 08:42 Order name: CBC Smear Scan EDGA 10/27 07:54 Order name: Chest Single View XRAY rn 10/27 07:54 Order name: Accucheck; Complete Time: 08:57 rn 10/27 07:54 Order name: Cardiac monitoring; Complete Time: 08:57 rn 10/27 07:54 Order name: EKG - Nurse/Tech; Complete Time: 08:57 rn 10/27 07:54 Order name: IV Saline Lock - Large Bore; Complete Time: 08:57 rn 10/27 07:54 Order name: Labs collected and sent; Complete Time: 08:57 rn 10/27 07:54 Order name: O2 Per Protocol; Complete Time: 08:57 rn 10/27 07:54 Order name: O2 Sat Monitoring; Complete Time: 08:57 rn 10/27 07:54 Order name: Vital Signs; Complete Time: 08:57 rn EC:38 Rate is 60 beats/min. Rhythm is irregularly irregular. QRS [place] is Normal. QRS interval rn is normal. No Q waves. T waves are Normal. ST Segment is elevated in leads II, III, aVF, V4, V5, V6. ST Segment is depressed in leads I, aVL. Clinical impression: ST elevation inferior/lateral leads. Interpreted by me. Reviewed by me. Administered Medications: 08:44 Drug: Brilinta - Ticagrelor PO 180 mg PO once; loading dose Route: PO; iw 08:50 Follow up: Response: No adverse reaction iw 08:44 Drug: HEParin IV 4000 units IV at bolus once {Co-Signature: ap3 (Rebecca Bobby RN).} iw Route: IV; Rate: bolus; Site: right antecubital; 08:50 Follow up: IV Status: Completed infusion iw 08:44 Drug: Aspirin PO Chewable Tablet 324 mg PO once; 81 mg tablets x 4 Route: PO; iw 08:50 Follow up: Response: No adverse reaction iw 08:56 Not Given (pt to cath laba): ondansetron 4 mg IVP once; over 2 minutes iw 08:56 Not Given (pt to lab aide ): ns 0.9% 500 ml IV at bolus once iw Disposition Summary: 10/28/23 08:42 Hospitalization Ordered Notes: Hospitalization Status: Inpatient Admission rn Location: Telemetry/[facility] (Inpatient) rn Condition: Stable rn Problem: new rn Symptoms: have improved rn Bed/Room Type: Standard rn Room Assignment: rn Provider: Gaby Castellanos(10/28/23 08:47) rn Diagnosis - ST elevation (STEMI) myocardial infarction of unspecified site rn - Vomiting, unspecified rn - Diarrhea, unspecified rn Forms: - Medication Reconciliation Form rn - SBAR form rn - Leadership Thank You Letter flange turner time excluding procedures: 08:40 Critical care time: Bedside Care: 30 minutes, Consultation: 5 minutes. Total time: 35 rn minutes Signatures: Dispatcher [employer] Myra Olmedo RN RN iw Darell Torrez MD MD rn Prokisch, Amanda, RN RN ap3 Rebecca Bobby RN ap3 Corrections: (The following items were deleted from the chart) 07:55 07:55 BLOOD CULTURE*+BA.LAB.BRZ ordered. EDMS EDMS 07:55 07:55 CBC+H.LAB.BRZ ordered. EDMS EDMS 07:55 07:55 COMPREHENSIVE METABOLIC PANEL+C.LAB.BRZ ordered. EDMS EDMS 07:55 07:55 LACTATE+C.LAB.BRZ ordered. EDMS EDMS 07:55 07:55 PROTIME (+INR)+COAG.LAB.BRZ ordered. EDMS EDMS 07:55 07:55 PTT, ACTIVATED+COAG.LAB.BRZ ordered. EDMS EDMS 07:55 07:55 Urinalysis+U.LAB.BRZ ordered. EDMS EDMS 07:55 07:55 SARS-COV-2 Antigen Rapid+I.LAB.BRZ ordered. EDMS EDMS 07:55 07:55 Influenza Screen (A \T\ B)+BA.LAB.BRZ ordered. EDMS EDMS 07:55 07:55 Chest Single View+RAD.RAD.BRZ ordered. EDMS EDMS 07:55 07:55 Abdomen Pelvis W Con+CT.RAD.BRZ ordered. EDGA EDMS 08:19 08:16 Constitutional: This is a well developed, well nourished patient who is awake, rn alert, and in no acute distress. Cardiovascular: Bradycardic, regular. Respiratory: Lungs have equal breath sounds bilaterally, clear to auscultation and percussion. No rales, rhonchi or wheezes noted. No increased work of breathing, no retractions or nasal flaring. Abdomen/GI: Soft, non-tender, with normal bowel sounds. No distension or tympany. No guarding or rebound. No evidence of tenderness throughout. rn 08:47 08:42 Fernando Shannon rn rn
--- NOTE | 2023-10-28 08:43 | ER ---
Nurse's Notes [facility] Name: Gavin Fernandes Age: 78 yrs Sex: Male : 1945 Arrival Date: 10/28/2023 Time: 07:30 Bed 5 Private MD: Diagnosis: ST elevation (STEMI) myocardial infarction of unspecified site;Vomiting, unspecified;Diarrhea, unspecified Presentation: 10/27 07:47 Chief complaint: Patient states: he has been having nausea, vomiting, shortness of ap3 breath, diarrhea, runny nose, vomiting, and weakness for approx 3 days. patient is unable to tolerate foods or fluids at home. Coronavirus screen: Client presents with at least one sign or symptom that may indicate coronavirus-19. Ebola Screen: No symptoms or risks identified at this time. Initial Sepsis Screen: Does the patient meet any 2 criteria? No. Patient's initial sepsis screen is negative. Does the patient have a suspected source of infection? No. Patient's initial sepsis screen is negative. Risk Assessment: Do you want to hurt yourself or someone else? Patient reports no desire to harm self or others. Onset of symptoms was October 26, 2023. 07:47 Method Of Arrival: Wheelchair ap3 07:47 Acuity: MARY 3 ap3 08:33 Acuity: MARY 2 iw Triage Assessment: 07:50 General: Appears in no apparent distress. Behavior is calm, cooperative, appropriate ap3 for age, Reports fatigue for. Pain: Denies pain. EENT: Reports nasal congestion. Neuro: Level of Consciousness is awake, alert, obeys commands, Oriented to person, place, time, situation, Reports weakness. Cardiovascular: Patient's skin is warm and dry. Respiratory: Reports shortness of breath on exertion cough that is Airway is patent Respiratory effort is even, unlabored, Respiratory pattern is regular, symmetrical. Respiratory: Onset: The symptoms/episode began/occurred gradually. GI: Reports diarrhea, intolerance of fluids, intolerance of food, nausea, vomiting. 08:00 Respiratory: the patient has moderate shortness of breath. iw Historical: - Allergies: 07:49 No Known Allergies; ap3 - PMHx: 07:49 Anxiety; Arthritis; Atrial Fib; chronic low platelets; Cirrhosis; Depression; Diabetes ap3 - IDDM; hepatic carcinoma; Hepatitis; Hypertension; - PSHx: 07:49 Cardiac Ablation; liver transplant; ap3 - Immunization history:: Client reports receiving the 2nd dose of the Covid vaccine. - Infectious Disease History:: Denies. - Social history:: Smoking status: Patient denies any tobacco usage or history of. - Family history:: not pertinent. - Hospitalizations: : No recent hospitalization is reported. Screenin:42 [facility] ED Fall Risk Assessment (Adult) History of falling in the last 3 months, jl7 including since admission No falls in past 3 months (0 pts) Confusion or Disorientation No (0 pts) Intoxicated or Sedated No (0 pts) Impaired Gait No (0 pts) Mobility Assist Device Used No (0 pt) Altered Elimination No (0 pt) Score/Fall Risk Level 0 - 2 = Low Risk Oriented to surroundings, Maintained a safe environment. Abuse screen: Denies threats or abuse. Denies injuries from another. Nutritional screening: No deficits noted. Tuberculosis screening: No symptoms or risk factors identified. Assessment: 08:20 General: Appears in no apparent distress. Behavior is calm, cooperative. General: iw Reports feeling ill for fatigue for. Neuro: Level of Consciousness is awake, alert, obeys commands, Oriented to person, place, time, situation, Moves all extremities. Cardiovascular: Rhythm is ST elevation. Respiratory: Reports shortness of breath at rest on exertion Airway is patent Respiratory effort is even, labored, GI: Reports nausea, vomiting. Derm: Skin is intact, is fragile, Skin is. Musculoskeletal: Range of motion: intact in all extremities. 08:35 Reassessment: Dr. Rae at bedside assessing pt and discussing POC with pt and family. jl7 Plan is to take pt to phlebotomist lab assistant. Vital Signs: 07:47 BP 138 / 84; Pulse 58; Resp 18; Temp 98.3(TE); Pulse Ox 99% on R/A; Weight 85.28 kg ap3 (R); Height 5 ft. 6 in. ; 09:00 BP 135 / 97; Pulse 61; Resp 19; Pulse Ox 99% on R/A; iw 07:47 Body Mass Index 30.34 (85.28 kg, 167.64 cm) ap3 ED Course: 07:33 Patient arrived in ED. ra3 07:39 Darell Torrez MD is Attending Physician. rn 07:49 Triage completed. ap3 07:51 Arm band placed on right wrist. ap3 07:51 Patient has correct armband on for positive identification. Bed in low position. Call ap3 light in reach. Side rails up X 1. Adult w/ patient. Client placed on continuous cardiac and pulse oximetry monitoring. NIBP monitoring applied. classroom aide on. Pulse ox on. NIBP on. 07:58 Myra Wang, RN is Primary Nurse. iw 08:10 Chest Single View XRAY In Process Unspecified. EDMS 08:20 Initial lab(s) drawn, by me, sent to lab. First set of blood cultures drawn by me. iw Inserted saline lock: 20 gauge in right antecubital area, using aseptic technique. Blood collected. Flushed with 10 mL NS. 08:41 Fernando Shannon is Hospitalizing Provider. rn 08:44 Second set of blood cultures drawn by me. zm 08:47 Gaby Castellanos MD is Hospitalizing Provider. rn 08:56 Inserted saline lock: 18 gauge in left wrist, using aseptic technique. Blood collected. zm Flushed with 10 mL NS. 08:56 EKG done, by community service technician. reviewed by Darell Torrez MD. oe 09:00 No provider procedures requiring assistance completed. Patient admitted, IV remains in iw place. Administered Medications: 08:44 Drug: Brilinta - Ticagrelor PO 180 mg PO once; loading dose Route: PO; iw 08:50 Follow up: Response: No adverse reaction iw 08:44 Drug: HEParin IV 4000 units IV at bolus once {Co-Signature: ap3 (Rebecca Bobby RN).} iw Route: IV; Rate: bolus; Site: right antecubital; 08:50 Follow up: IV Status: Completed infusion iw 08:44 Drug: Aspirin PO Chewable Tablet 324 mg PO once; 81 mg tablets x 4 Route: PO; iw 08:50 Follow up: Response: No adverse reaction iw 08:56 Not Given (pt to cath laba): ondansetron 4 mg IVP once; over 2 minutes iw 08:56 Not Given (pt to phlebotomist lab assistant ): ns 0.9% 500 ml IV at bolus once iw Medication: 08:42 VIS not applicable for this client. jl7 Outcome: 08:42 Decision to Hospitalize by Provider. rn 09:01 Admitted to It Program Auditor accompanied by nurse, family with patient, via stretcher, iw 09:01 Condition: stable 09:01 Instructed on the need for admit, 09:02 Patient left the ED. iw Signatures: Dispatcher [employer] EDMyra Chris, RN Darell Isidro MD MD rn Espinosa, Orlando oe Leal, Jahala, RN RN jl7 Rebecca Bobby RN RN ap3 Julia Cooper Ruby ra3 Prokisch, Amanda RN ap3
[2023-10-28] MEDS ORDERED: ATROPINE SULF 1 MG/10 ML SYR IV ONE ×3 (08:44→10:00)
[2023-10-28] MEDS ORDERED: HEPARIN 5000 UNIT/ML 1 ML VIAL ONE (08:44)
[2023-10-28] MEDS ORDERED: HEPARIN 10,000 UNIT/10 ML VIAL IV ONE (08:44)
[2023-10-28] MEDS ORDERED: CLOPIDOGREL 75 MG TABLET ONE (08:44)
[2023-10-28] MEDS ORDERED: FENTANYL CITR 100 MCG/2 ML ONE (08:45)
[2023-10-28 08:46] LABS: PT Prothrombin Time 13.4 SECONDS (9.4-12.5); PTT, Activated Partial Thromb 30.9 SECONDS (24.3-36.9); Protime INR 1.2
[2023-10-28 09:00] LABS: SARS-CoV-2 Antigen CONTROL BLUE LINE VIS/BG OK; SARS-CoV-2 Antigen Rapid Res Negative (Negative)
[2023-10-28] MEDS ORDERED: NA CHLORIDE 0.9% 500 ML ONE (09:01)
[2023-10-28 09:13] LABS: Albumin 4.2 g/dL (3.4-5.0); Albumin/Globulin Ratio 1.1 (1.1-1.8); Anion Gap 19.6 mEq/L (5.0-15.0); Bilirubin Total 1.3 mg/dL (0.2-1.0); Potassium 4.6 mEq/L (3.5-5.1); Protein, Total 8.2 g/dL (6.4-8.2)
[2023-10-28 09:16] LABS: Troponin High Sensitivity 62451.1 pg/mL (<58.9)
[2023-10-28 09:17] LABS: Blood Morphology Comment NOT SEEN (NOT SEEN); Platelet Estimate ADEQ; White Blood Cell Scan OK (OK)
[2023-10-28] MEDS ORDERED: ONDANSETRON 4 MG/2 ML VIAL ONE (09:18)
[2023-10-28] MEDS ORDERED: EPTIFIBATIDE 20 MG/10 ML VIAL IV ONE (09:36)
[2023-10-28] MEDS ORDERED: EPTIFIBATIDE 75 MG/100 ML VIAL IV ONE (09:36)
[2023-10-28] MEDS ORDERED: Phenylephrine HCl 10 MG/ML 1 ML VIAL ONE (09:49)
--- NOTE | 2023-10-28 10:00 | RAD REPORT ---
EXAM DESCRIPTION: Miriam Single View10/28/2023 8:08 am CLINICAL HISTORY: Cough COMPARISON: 2020 FINDINGS: Mild opacity mid to lower right lung Left lung appears clear of acute trace Heart is mildly enlarged IMPRESSION: Mild opacity mid to lower right lung probably either pneumonia or pneumonitis. A mass is considered less likely. Followup chest film in 1 month is recommended for re-evaluation
[2023-10-28] MEDS ORDERED: NITROPRUSSIDE 50 MG VIAL IV ONE (10:07)
[2023-10-28] MEDS ORDERED: D5W 250 ML IV ONE (10:08)
[2023-10-28] MEDS ORDERED: NOREPINEPHRINE BITARTRATE/D5W 0 MG/0 ML KIT IV ONE (10:11)
[2023-10-28] MEDS ORDERED: ADENOSINE 6 MG/ 2ML VIAL IV ONE ×2 (10:13→10:15)
[2023-10-28] MEDS ORDERED: NA CHLORIDE 0.9% 1,000 ML ONE (10:14)
[2023-10-28] MEDS: Phenylephrine HCl 50 MG in D5W 245 ML IV SCH (11:20)
[2023-10-28] MEDS ORDERED: ONDANSETRON 4 MG/2 ML VIAL IV PRN (11:48)
[2023-10-28] MEDS ORDERED: D10W 125 ML IV PRN (11:49)
[2023-10-28] MEDS ORDERED: GLUCAGON 1 MG/VIAL IM PRN (11:49)
[2023-10-28] MEDS: INSULIN REGULAR (HUMAN) 100 UNIT/ML SQ SCH (12:12)
[2023-10-28] MEDS: NA CHLORIDE 0.9% 500 ML IV ONE (12:12)
[2023-10-28] MEDS: NA CHLORIDE 0.9% 1,000 ML IV SCH (12:12)
[2023-10-28] MEDS: Levofloxacin500mg IV 500 MG/100 ML BAG IV ONE (12:12)
--- NOTE | 2023-10-28 12:48 | P.CNS ---
Date of Consult: 10/28/23 Chief Complaint: Nausea and vomitting History of Present Illness: Patient with PMH of atrial fibrillation s/p ablation and lariat procedure, HTN, Liver transplant presented with N&V and diarrhea for the last 3 days, denies chest pain but report left upper shoulder pain, no SOB, no SIDDIQUI, no dizziness, no syncope. Allergies No Known Allergies Allergy (Unverified 06/21/12 13:29) Home medications list reviewed: Yes Home Medications: Amlodipine [Norvasc] 10 mg PO DAILY 04/07/21 Aspirin [Adult Aspirin Regimen] 81 mg PO DAILY 04/07/21 Omeprazole [Prilosec] 40 mg PO DAILY 04/07/21 RX: Everolimus 1 mg PO BID 04/07/21 RX: Gabapentin 600 mg PO BID 04/07/21 RX: Losartan Potassium 25 mg PO DAILY 04/07/21 RX: Meclizine HCl 25 mg PO DAILY 04/07/21 RX: Thiamine HCl 150 mg PO DAILY 04/07/21 Tacrolimus 1 mg PO BID 04/07/21 - Past Medical/Surgical History Diabetic: Yes -: afib -: gerd -: liver transplant -: anxiety -: hep c -: sleep apnea -: depression -: anemia -: liver transplant -: cholecystectomy - Social History Smoking Status: Unknown if ever smoked Alcohol use: No CD- Drugs: No Caffeine use: No Place of Residence: Home Review of Systems 10-point ROS is otherwise unremarkable Physical Examination Temp Pulse Resp BP Pulse Ox 98.3 F 61 19 135/97 H 10/28/23 09:18 10/28/23 09:19 10/28/23 09:19 10/28/23 09:19 General: Alert, In no apparent distress HEENT: Atraumatic, PERRLA, Mucous membr. moist/pink, EOMI, Sclerae nonicteric Neck: Supple, 2+ carotid pulse no bruit, No LAD, Without JVD or thyroid abnormality Respiratory: Clear to auscultation bilaterally, Normal air movement Cardiovascular: Regular rate/rhythm, Normal S1 S2 Gastrointestinal: Normal bowel sounds, No tenderness Musculoskeletal: No tenderness Integumentary: No rashes Neurological: Normal gait, Normal speech, Normal tone, Normal affect Lymphatics: No axilla or inguinal lymphadenopathy Laboratory Data (last 24 hrs) 10/28/23 10/28/23 10/28/23 08:24 08:24 08:24 WBC 19.40 H Hgb 16.3 Hct 49.2 H Plt Count 202 PT 13.4 H INR 1.20 APTT 30.9 Sodium 132 L Potassium 4.6 BUN 36 H Creatinine 2.69 H Glucose 344 H Total Bilirubin 1.3 H AST 365 H ALT 103 H Alkaline Phosphatase 111 - Problems (1) STEMI (ST elevation myocardial infarction) Current Visit: Yes Status: Acute Plan: EKG shown ST elevation inferior leads, patient was taken emergently to poultry hatchery laborer, PCI of 100% occluded RCA was done with Synergy 2.5x38 overlapped with 3.0x32 mm HERLINDA was done, patient had no reflow due to heavy thrombus burden and multiple rounds of Nepride was given with neosynephrine and atropine due to significant bradycardia, OTIS 2 flow was established at the end. ASA 81 mg daily for life. Brilinta 90 mg po BID for 12 months Integrillin drip for 12 hours Lipitor 40 mg daily (2) Afib Current Visit: No Status: Acute Plan: currently in sinus rhythm, no anticoagulation as patient had Lariat procedure. (3) Hypertension Current Visit: No Status: Acute Plan: Hold medications for now as patient BP is low.
[2023-10-28 13:04] LABS: Absolute Basophils 0.1 K/uL (0-0.5); Absolute Lymphocytes (CBC) 1.3 K/uL (0.7-4.9); Absolute Monocytes 1.7 K/uL (0.1-1.3); Absolute Neutrophil 18.8 K/uL (1.8-8.0); Basophils % 0.5 % (0-1.3); Eosinophils % 0.1 % (0-4.4); Hematocrit 46.8 % (39.6-49.0); Hemoglobin 15.1 g/dL (13.6-17.9); Lymphocytes % 6.1 % (15.3-44.8); MCH 27.1 pg (27.0-35.0); MCHC 32.2 g/dL (32.0-36.0); MCV 84.1 fL (80-100); Monocytes % 7.6 % (3.3-12.3); Neutrophils % 85.7 % (41.7-73.7); Platelets 180 thou/uL (152-406); RBC Red Blood Cell Count 5.56 M/uL (4.33-5.43); Red Cell Distribution Width 17.1 % (12.1-15.2)
[2023-10-28 13:17] LABS: Anion Gap 17.6 mEq/L (5.0-15.0)
[2023-10-28 13:18] LABS: Potassium 5.6 mEq/L (3.5-5.1)
[2023-10-28] MEDS: ONDANSETRON 4 MG/2 ML VIAL IV PRN (15:12)
[2023-10-28 15:57] LABS: Absolute Basophils 0.1 K/uL (0-0.5); Absolute Lymphocytes (CBC) 1.3 K/uL (0.7-4.9); Absolute Monocytes 1.7 K/uL (0.1-1.3); Absolute Neutrophil 18.4 K/uL (1.8-8.0); Basophils % 0.5 % (0-1.3); Hematocrit 48.8 % (39.6-49.0); Hemoglobin 15.4 g/dL (13.6-17.9); MCH 26.7 pg (27.0-35.0); MCHC 31.6 g/dL (32.0-36.0); MCV 84.3 fL (80-100); MPV 7.9 fL (7.6-11.3); Monocytes % 7.8 % (3.3-12.3); Neutrophils % 85.7 % (41.7-73.7); Platelets 183 thou/uL (152-406); RBC Red Blood Cell Count 5.79 M/uL (4.33-5.43); Red Cell Distribution Width 16.8 % (12.1-15.2)
[2023-10-28] MEDS: SODIUM ZIRCONIUM CYCLOSILICATE 10 GM/PKT PO ONE (16:00)
[2023-10-28] MEDS: WATER FOR INJ,STERILE 1,000 ML with NA BICARB 8.4% 150 MEQ IV SCH (16:09)
[2023-10-28] MEDS ORDERED: INSULIN REGULAR (HUMAN) 100 UNIT/ML SQ SCH (16:30)
[2023-10-28 17:31] LABS: Hepatitis B Core Ab, Total Nonreactive (Nonreactive)
[2023-10-28 17:32] LABS: Hepatitis B Surface Ab - Quant < 3.10 mIU/mL (<8.0)
--- NOTE | 2023-10-28 18:24 | CON ---
Date of Consultation: 10/28/2023 Reason For Consultation: Hyperkalemia, acute kidney injury, and acidosis. History Of Present Illness: This is a 78-year-old man with past medical history of liver transplanta tion from donor about 20 years ago. He is on tacrolimus and everolimus and history of hyper tension, who presented with shortness of breath and chest and shoulder pain. As per , patient wa s complaining of nausea, vomiting, and diarrhea since Tuesday, and then he noticed to have shoulder pain. He has used the pain patch with no improvement and that patient was complaining of shortness of breath and brought to the emergency room. Upon presentation, patient noticed to have elevated cre atinine of 2.69, elevated troponin one night before cardiac catheterization. The patient denied any advanced medical renal disease or NSAID intake. Nephrology consulted for further evaluation. Past Medical History: Liver transplant, hypertension, morbid obesity. Past Surgical History: Liver transplantation. Family History: Noncontributory. Allergies: NO KNOWN DRUG ALLERGIES. Review of Systems: General: Had weakness. Denied fever or chills. HEENT: Denied headache or blurred vision. Respiratory: No shortness of breath. No cough. Cardiovascular: Denies chest pain or palpitation. GI: Nausea. Diarrhea, resolved. : Denies dysuria, hematuria, increase in frequency or urgency. Physical Examination: Vital Signs: Pulse is 57, blood pressure 98/87. General: Awake and alert. Looks well appearing. Neck: Supple. No elevated JVD. Heart: Regular rate and rhythm. Normal S1, S2. Chest: Clear to auscultation bilaterally. No rales or wheezes. Abdomen: Soft, nontender. Have the healed scar. Extremities: No edema. Laboratory Data: Sodium 131, potassium 5.6, BUN 37, creatinine 2.5, bicarb of 18, lactic acid 6.6, a nd troponin is 62,000. Assessment And Plan: 1.Acute kidney injury, possibly due to ATN. The patient received IV contrast. He was appropriately hydrated before the cardiac catheterization. We will switch the fluids to bicarbonate drip. Monito r renal function. We will order renal ultrasound. Renal diet. Avoid NSAID and contrast. If no imp rovement in the renal function by tomorrow, then the patient will need renal placement therapy. 2.Hyperkalemia, off lisinopril. We will start the patient on bicarb drip and give 1 dose of Lokelma . 3.Metabolic acidosis. Bicarb drip as above. 4.Lactic acidosis, likely ischemic, and likely due to hypovolemic shock. Continue IV fluid as above . 5.History of liver transplantation. Continue tacrolimus and sirolimus and everolimus. We will jad tor the tacrolimus level. 6.Coronary artery disease, status post PCI. Cardiology consult appreciated. Continue antiplatelet treatment. KIT/MAIKEL Voice ID: [id number] Report ID: [id number]
--- NOTE | 2023-10-28 19:08 | RAD REPORT ---
EXAM DESCRIPTION: US - Renal Ultrasound-Complete - 10/28/2023 7:00 pm CLINICAL HISTORY: sheryl Flank pain COMPARISON: <Comparisons> FINDINGS: Both kidneys demonstrate cortical thinning. Bilateral renal cysts are present of varying s ize. The right kidney measures 9.8 x 6.3 x 4.3 cm. No hydronephrosis, focal mass or perinephric fluid. The left kidney measures 11.7 x 5.6 x 5.1 cm.. No hydronephrosis, focal mass or perinephric fluid. The urinary bladder is incompletely distended without gross abnormality seen. IMPRESSION: Bilateral renal cysts are noted, otherwise negative study.
[2023-10-28 19:12] LABS: Sqamous Epithelial <5 /HPF (None Seen); UR SODIUM < 15 mmol/L (27-287); Urine Bacteria <20 /HPF (<20); Urine Bilirubin NEGATIVE (Negative); Urine Blood 3+ (OVER) (Negative); Urine Clarity Extremely Turbid (Clear); Urine Color Light-Orange (Yellow); Urine Crystals Unidentified Few /HPF (None Seen); Urine Culture Reflex Order REFLEXED; Urine Glucose NEGATIVE (Negative); Urine Ketones TRACE (Negative); Urine Microscopic Reflex YN ORDER UMIC; Urine Mucus Slight /HPF (None Seen); Urine Nitrite NEGATIVE (Negative); Urine Protein 1+ (Negative); Urine RBC >50 /HPF (None Seen); Urine Urobilinogen Normal (Normal); Urine WBC >50 /HPF (<5); Urine WBC Clump Few /HPF (None Seen); Urine Yeast (Budding) Many /HPF (None Seen); Urine pH 5.5 (5.0-7.0)
[2023-10-28 19:15] LABS: Specific Gravity > 1.030 (1.005-1.030)
[2023-10-28 19:22] LABS: UR PROTEIN 75.8 mg/dL (<11.9); Urine Protein/Creatinine Ratio 0.52 ratio (<0.15)
[2023-10-28] MEDS ORDERED: EVEROLIMUS 1 MG PO SCH (21:00)
[2023-10-28] MEDS: GABAPENTIN 300 MG CAP PO SCH (21:12)
[2023-10-28] MEDS: DONEPEZIL HCL 5 MG TAB PO SCH (21:12)
[2023-10-28] MEDS: INSULIN GLARGINE 100 UNIT/ML SQ SCH (21:13)
[2023-10-28] MEDS: ATORVASTATIN 80 MG TAB PO SCH (21:13)
[2023-10-28] MEDS: TICAGRELOR 90 MG TABLET PO SCH (21:13)
[2023-10-28] MEDS: TACROLIMUS 1 MG PO SCH (21:14)
[2023-10-28] MEDS: EVEROLIMUS 0.5 MG PO SCH (21:15)
[2023-10-28 21:27] LABS: Anion Gap 19.5 mEq/L (5.0-15.0)
[2023-10-28 21:28] LABS: Potassium 4.5 mEq/L (3.5-4.9)
--- NOTE | 2023-10-28 23:06 | OP ---
Date of Procedure: 10/28/2023 Surgeon: Arpit Rae Procedures Performed: 1.Selective coronary angiogram. 2.PCI of the RCA with Synergy 3.0 x 32 and 2.5 x 38 mm drug-eluting stents. Indication For Procedure: ST-elevation HI. Complications: None. Estimated Blood Loss: Less than 50 cc. Access: Right radial, closed by TR band. Sedation Time: 90 minutes with 1 of Versed and 25 of fentanyl. Description Of Procedure: After risks, benefits, and alternatives were explained to the patient, the patient agreed to proceed with the procedure and signed informed consent. The patient was brought b k to the asphalt plant laborer, prepped and draped in sterile fashion. Time-out was performed. Sedation was ad ministered. Next, the right radial access was obtained using ultrasound-guided micropuncture [employer] ue. A 6-[place] sheath was introduced. After that, we advanced a JR4 guide over J-wire through the a ortic root. Selective angiogram shows 100% occluded RCA, so a run-through wire was passed across the lesions. We pre-dilated the lesion with an NC 2.5 mm balloon. Next, we tried to advance 2.5 x 38 m m drug-eluting stent, but was unable to deliver due to tortuosity, so a GuideLiner was used for suppo rt and then after we delivered a 2.5 x 38 mm drug-eluting stent to the mid RCA, it was overlapped wit h another Synergy 3.0 x 32 mm drug-eluting stent proximal to mid RCA. Repeat angiogram shows OTIS 0 flow, most likely heavy thrombus burden and there was no reflow, so multiple rounds of Nipride was gi elpidio and needle was given so that we have taken 2.[address] to the distal RCA. W e did serial dilatations for help break out the thrombus. Multiple rounds of Nipride were given and also atropine was given as the patient became bradycardic. The stent was later postdilated with a 3. 25 mm NC balloon. Final angiogram shows OTIS-2 flow. The patient became hemodynamically stable. e JR4 guide was later exchanged for a JL3.5 diagnostic catheter for selective angiogram of the left c oronary systems. The catheter was later removed over the J-wire and sheath was removed. TR band was applied and hemostasis was achieved. The patient was moved back to recovery in stable condition. Findings: 1.Left main, normal. 2.LAD, mid 50% disease, the whole LAD is mid to distal diffuse disease, very small artery. 3.Left circ, proximal to mid mild luminal irregularities, gives OM1 and then distally it is 100% occ luded, which looks like subacute, but it is a small artery. 4.RCA, very tortuous, proximal 120-degree angle, Taylor's crook RCA in nature with mid 100% occlud ed. PCI done with Synergy 3.0 x 32 mm drug-eluting stent overlapped with a 2.5 x 38 mm drug-eluting stent from the proximal to mid RCA. Distal 30% disease, RPDA/RPLV mild luminal irregularities. Assessment: 1.STEMI secondary to acute thrombotic occlusion of the mid RCA, status post PCI with Synergy 3.0 x 3 2 mm drug-eluting stent overlapped with a 2.5 x 38 mm drug-eluting stent from proximal to mid RCA. 2.Significant distal left circ disease, small artery. We will continue medical management. 3.Mid LAD disease, outpatient stress test. Plan: 1.Aspirin 81 mg daily for life. 2.Brilinta 180 x1 was given in the asphalt plant laborer, continue Brilinta 90 mg p.o. b.i.d. for 12 months. 3.Integrilin bolus was given in the asphalt plant laborer, continue Integrilin drip for 12 hours. 4.Admit to ICU for closer monitoring and get echo. TONY/MAIKEL Voice ID: [id number] Report ID: [id number]
[2023-10-29 08:21] LABS: Absolute Basophils 0.2 K/uL (0-0.5); Absolute Lymphocytes (CBC) 1.8 K/uL (0.7-4.9); Absolute Neutrophil 17.7 K/uL (1.8-8.0); Basophils % 0.8 % (0-1.3); Hematocrit 45.8 % (39.6-49.0); Hemoglobin 15.1 g/dL (13.6-17.9); Lymphocytes % 8.1 % (15.3-44.8); MCH 27.2 pg (27.0-35.0); MCHC 33.1 g/dL (32.0-36.0); MCV 82.2 fL (80-100); MPV 8.1 fL (7.6-11.3); Monocytes % 9.2 % (3.3-12.3); Neutrophils % 81.9 % (41.7-73.7); Platelets 162 thou/uL (152-406); RBC Red Blood Cell Count 5.57 M/uL (4.33-5.43); Red Cell Distribution Width 16.8 % (12.1-15.2)
[2023-10-29 08:37] LABS: Anion Gap 16.3 mEq/L (5.0-15.0); Potassium 4.3 mEq/L (3.5-5.1)
[2023-10-29] MEDS: CETIRIZINE HCL 5 MG TABLET PO SCH (08:39)
[2023-10-29] MEDS: ESCITALOPRAM 20 MG TAB PO SCH (08:39)
[2023-10-29] MEDS: ASPIRIN 81 MG CHEWABLE TABLET PO SCH (08:39)
[2023-10-29 09:42] LABS: Hepatitis B surface AG Interp. Nonreactive (Nonreactive)
[2023-10-29 09:43] LABS: HBsAG Nonreactive Report Report
--- NOTE | 2023-10-29 11:48 | PN ---
Date of Progress Note: 10/29/2023 Subjective: The patient was seen this morning for followup. No new complaints or problems reported by him. He was lying in bed. Overall, nausea is better. Objective: Vital Signs: Reviewed. Blood pressure is much better and stable. He is maintaining oxy gen saturation 96% to 98% on room air while I was in ICU and his was there with him at bedside. The patient has not had a bowel movement since he came to the hospital. Cadet catheter is in place draining clear yellow urine. HEENT: Unremarkable. Lungs: Clear to auscultation. Heart: Sounds normal. Abdomen: Appeared slightly distended in the upper part. No tenderness. Extremities: No leg edema. Laboratory Data: Sodium 131, potassium 4.3, chloride 96, bicarb 23, BUN 61, creatinine 2.66, glucose 216, hemoglobin A1c 6.4, LDL 37, triglyceride 166, HDL 38. WBC 21.6, hemoglobin 15.1, platelets 162 . Impression: 1.STEMI. 2.Coronary artery disease. 3.Acute kidney injury. 4.Acute gastroenteritis. 5.Urinary tract infection. 6.Type 2 diabetes mellitus. 7.Hypertension. 8.Hyperlipidemia. 9.Insomnia. 10.Vascular dementia. Plan: We will go ahead and continue to keep the patient in ICU. Continue Cadet catheter at this sarah e and continue to follow with supervisor finishing department and show host or hostess. The patient is on maintenance IV fluid. We will continue that. We will continue current antibiotics. Follow up on urine culture and for d iabetes, we will continue insulin as per order with monitoring of fingerstick blood sugar. We will g et abdominal x-ray KUB today to look for any ileus. We will go ahead and change his diet from curren t diet to clear liquid diet as he is still having some nausea and I am concerned about ileus at this time. Details and plan of treatment discussed with the patient and the patient's . I will see h im tomorrow for followup. KATRIN/MODL Voice ID: [id number] Report ID: [id number]
--- NOTE | 2023-10-29 12:04 | RAD REPORT ---
EXAM DESCRIPTION: RAD - Abdomen 1 View (KUB) - 10/29/2023 11:57 am CLINICAL HISTORY: Possible ileus Pain COMPARISON: <Comparisons> FINDINGS: Diffuse gaseous distention of bowel loops in the abdomen suggests diffuse adynamic ileus. No suspicious calcifications. No significant bony findings. IMPRESSION: Moderate diffuse adynamic ileus.
[2023-10-29] MEDS: Levofloxacin 250mg IV 250 MG/50 ML BAG IV SCH (12:45)
--- NOTE | 2023-10-29 12:50 | HP ---
Date of Admission: 10/28/2023 Chief Complaint: Nausea, vomiting, diarrhea, shoulder pain, and shortness of breath. History Of Present Illness: This is a 78-year-old very pleasant male patient who has been having some nausea, vomiting, diarrhea for the last 2-3 days after he ate at a restaurant in [place]. Since he was not feeling any better, his brought him to the emergency room this morning and after he arrived in the emergency room, he was complaining of having some shortness of breath also and has had some left shoulder pain in last day or 2 days. He denies any chest pain. The patient does have shortness of breath with activity, which is his chronic baseline complaint, but in last 2-3 days, it is more than usual as patient's has reported. In any case, after he arrived in the emergency room, he was evaluated and with all these complaints, his EKG was done along with other routine labs and the EKG show elevation in inferior leads and his troponin I and a film loader was consulted for STEMI and patient was taken to metallurgy laboratory technician immediately. I saw patient in metallurgy laboratory technician prior to cardiac cath procedure. Allergies: NO KNOWN ALLERGIES. Medications: Amlodipine 10 mg daily, atorvastatin 20 mg at bedtime, azelastine nasal spray each nostril 2 times a day, Breztri inhaler takes daily. Questran 1 packet mixed with 4 ounce water and drink it daily, donepezil 10 mg daily, Trulicity takes 0.75 mg subcutaneous injection once a week, escitalopram 20 mg daily, everolimus and tacrolimus as prescribed by his specialist. Ngozi 180 mg daily, fluticasone nasal spray 1 spray each nostril 2 times a day as needed, gabapentin 600 mg 2 times a day, losartan 25 mg daily, melatonin 10 mg daily at bedtime, Lovaza 1000 mg takes 1 capsule 2 times a day, spironolactone 25 mg daily, thiamine 50 mg takes 3 tablets daily, trazodone 50 mg takes half to 1 tablet daily at bedtime. Review of Systems: Respiratory: As mentioned above. GI: As mentioned above. All other systems reviewed and negative. Past Medical History: Significant for senile dementia, allergic rhinitis, type 2 diabetes mellitus, hypertension, hyperlipidemia, chronic atrial fibrillation, prior history of hepatitis C and cirrhosis of liver and liver cancer, hiatal hernia, ventral hernia, kidney stone, benign prostatic hypertrophy, cervical spondylosis, lumbar spondylosis, along with cervical and lumbar spinal stenosis, thrombocytopenia, anxiety, and depression. 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 Family History: Father , had myocardial infarction. Mother , had atrial fibrillation and stroke. Brother , had Alzheimer disease and lung cancer. Sister with diabetes. Social History: Negative for smoking and alcohol use. Physical Examination: Vital Signs: Height 5 feet 6 inches, weight 85.28 Kg, temperature 98.3, pulse 58, respiratory rate 18, blood pressure 138/84, oxygen saturation 99% General: Awake, alert, oriented, not in distress. HEENT: Head atraumatic, normocephalic. Conjunctivae nonerythematous. Sclerae white. Mouth, no thrush or edema noted. Ears/Nose, no mass, lesion, discharge noted. Neck: Supple. No JVD, lymph nodes, bruit, thyromegaly noted. Lungs: Bilateral good equal air entry. Clear to auscultation. No rhonchi. No rales. Heart: Normal heart sounds, no murmur or gallop. Abdomen: Soft, bowel sounds normal. No guarding, rigidity, tenderness, mass, hepatosplenomegaly, distention, or bruit noted. Extremities: No leg edema. No calf tenderness. Skin: No rash, ulcer, cellulitis. Lymphatics: No lymph node enlargement in neck, supraclavicular, infraclavicular region. Neuro: No focal neurological deficit. Chest: Unremarkable. External Genitalia: Deferred. Rectal: Deferred. Laboratory Data: WBC 19.4, hemoglobin 16.3, platelets 202. Sodium 132, potassium 4.6, chloride 100, bicarb 17, BUN 36, creatinine 2.69, glucose 344. Troponin 28772.1. Chest x-ray shows the area of density in the right mid to lower lung moody. EKG shows atrial fibrillation with evidence of elevation of ST-segment in inferior leads consistent with acute myocardial infarction. Impression: 1. Acute inferior wall myocardial infarction. 2. Coronary artery disease. 3. Chronic atrial fibrillation. 4. Hypertension. 5. Hyperlipidemia. 6. Type 2 diabetes mellitus. 7. Acute gastroenteritis. 8. Acute kidney injury. 9. Insomnia. 10. Vascular dementia. 11. Gastroesophageal reflux disease. 12. Lumbar spondylosis. 13. Cervical spondylosis. 14. Benign prostatic hypertrophy. Plan: We will go ahead and admit the patient to hospital for further evaluation and management of this problem. The patient is appropriate for inpatient and is expected to spend 2 midnights in hospital. After patient was evaluated in the emergency room, he was diagnosed as having STEMI and was taken to cardiac metallurgy laboratory technician. Dr. Rae did the procedure and after the procedure, he called and informed me that patient's RCA was occluded and he was able to put 2 stents in RCA. There is occlusion of distal part of circumflex, which will not require any further intervention at this time and he has about 50% stenosis in the left main, which will need to be monitored on outpatient basis. During procedure, patient did have drop in his heart rate as well as blood pressure, received about 1 L of IV fluid bolus and maintenance IV fluid was started and patient's blood pressure was stable by the time the procedure was done with systolic blood pressure between 100-110. The patient is on Integrilin and Brilinta. We will continue that. We will give high dose statin therapy and get fasting lipid profile done tomorrow morning. We will also get a hemoglobin A1c done tomorrow morning. For diabetes, we will manage with sliding scale insulin as well as long-acting insulin per order and monitor fingerstick blood sugar and make adjustment on insulin accordingly. For hypertension, we will not give him any antihypertensive medication considering his blood pressure is running on the lower side at this time and we will restart antihypertensive medications at appropriate time. For insomnia, we will start his trazodone probably starting tomorrow. Today after he came into ICU, we did give another bolus of IV fluid 500 cc and he did require vasopressor medication for a short time, but we were able to wean off after a brief period of time and we will continue IV fluid, monitor intake and output. For his acute kidney injury, we have consulted project eng for this. Renal ultrasound done today shows bilateral renal cysts, otherwise no other acute findings. The patient was not able to void after he came to ICU and on bladder scan he had approximately 400 cc of urine and after obtaining permission from film loader, nursing staff did try to get into bedside commode, but he got very dizzy and so we ended up making decision to go ahead and insert a Cadet catheter. We will continue to monitor his intake and output. He has been having nausea problem since he came to ICU and will continue Zofran per order. For his acute gastroenteritis problem, we will go ahead and continue Levaquin per order. Urinalysis was ordered along with urine culture. We will follow up on that as well. Density that we see on the chest x-ray, patient has been seeing Dr. Cotton on outpatient basis and in fact had a CAT scan of the chest done per him recently and Dr. Cotton has referred him to specialist in [place] for a biopsy on an outpatient basis. Total time spent today was 90 minutes including communication with the ER physician, review of emergency room records, communication with film loader, communication with the patient's , and performing evaluation and management for this hospital admission and review of last office visit record from 10/18/2023. KATRIN/MAIKEL Voice ID: [id number] MTDD
--- NOTE | 2023-10-29 12:50 | PN ---
Date of Progress Note: 10/29/2023 Subjective: The patient was admitted to the hospital with [id number] DE. The patient did undergo cardiac cath. The patient had acute kidney injury secondary to contrast-induced nephropathy and cardiorenal. The patient doing well, nonoliguric. Physical Examination: Vital Signs: Blood pressure 124/83, pulse of 52, afebrile. The patient had good urine output of 800 positive of 1800. Chest: Clear to auscultation. Heart: S1, S2 regular. Abdomen: Soft, nontender. Extremities: No edema. Neurologic: Alert. No focality. Laboratory Data: WBC 21.6, hemoglobin 15.1, platelet 162. Sodium 131, potassium 4.3, bicarb 23, BUN 61, creatinine 2.6, GFR 24, blood sugar 220, calcium 8.5. Current Medications: The patient is on include tacrolimus, aspirin, levofloxacin, Cetirizine, atorvastatin, gabapentin 300 b.i.d., insulin, bicarb drip. Assessment And Plan: 1. Acute kidney injury secondary to contrast-induced nephropathy/cardiorenal, nonoliguric. No hyperkalemia. No acidosis. I do not see the need to initiate any renal replacement therapy. I am going to continue on current hydration for the patient. We will consider discontinuing bicarb drip tomorrow to have more protection on the contrast induce and we will follow up. 2. Acidosis, high anion gap metabolic acidosis with non-anion gap metabolic acidosis, recover, resolve. We will continue bicarb for more kidney protection against the contrast. 3. Hyponatremia, depletion. I will continue IV hydration. We will follow up. 4. Liver transplant. Prograf level still pending. We will continue current dose. 5. Non-ST elevation DE as by Cardiology, status post cardiac cath. Continue hydration. Time spent examining the patient [id number] reviewing the data and clapper and the radiology placing order discussing the case with the patient discussing the case with the [place] including hospitalist and nursing staff more than 55 minutes SHAINA Voice ID: [id number] Report ID: [id number] MOSHE
--- NOTE | 2023-10-29 13:32 | P.PN ---
Subjective Date of Service: 10/29/23 Chief Complaint: Nausea and vomitting Subjective: No new changes, No C/O voiced, Tolerating diet, Ambulating, Improving Review of Systems 10-point ROS is otherwise unremarkable Physical Examination - Vital Signs Temperature: 96.7 F Blood Pressure: 124/83 Pulse: 52 Respirations: 23 Pulse Ox (%): 93 - Physical Exam General: Alert, In no apparent distress HEENT: Atraumatic, PERRLA, EOMI Neck: Supple, JVD not distended Respiratory: Clear to auscultation bilaterally, Normal air movement Cardiovascular: Regular rate/rhythm, Normal S1 S2 Gastrointestinal: Normal bowel sounds, No tenderness Musculoskeletal: No tenderness Integumentary: No rashes Neurological: Normal speech, Normal tone, Normal affect Lymphatics: No axilla or inguinal lymphadenopathy - Studies Microbiology Data (last 24 hrs): 10/28/23 08:30 Nasopharnyx Influenza Type A Antigen Screen - Final 10/28/23 08:30 Nasopharnyx Influenza Type B Antigen Screen - Final Medications List Reviewed: Yes Assessment And Plan - Current Problems (Diagnosis) (1) STEMI (ST elevation myocardial infarction) Current Visit: Yes Status: Acute Plan: EKG shown ST elevation inferior leads, patient was taken emergently to [facility], PCI of 100% occluded RCA was done with Synergy 2.5x38 overlapped with 3.0x32 mm HERLINDA was done, patient had no reflow due to heavy thrombus burden and multiple rounds of Nepride was given with neosynephrine and atropine due to significant bradycardia, OTIS 2 flow was established at the end. ASA 81 mg daily for life. Brilinta 90 mg po BID for 12 months Lipitor 40 mg daily (2) Afib Current Visit: No Status: Acute Plan: currently in sinus rhythm, no anticoagulation as patient had Lariat procedure. (3) Hypertension Current Visit: No Status: Acute Plan: Hold medications for now as patient BP is low.
--- NOTE | 2023-10-29 13:55 | EKG ---
Test Date: 2023-10-28 Test Time: 08:16:07 Ratchet Setter: YOVANI MEASUREMENT RESULTS: Intervals: Rate: 60 AR: QRSD: 90 QT: 454 QTc: 454 [place]: P: AR: QRS: -13 T: 76 INTERPRETIVE STATEMENTS: Atrial fibrillation Inferior infarct, possibly acute Anterolateral infarct, possibly acute ACUTE GA Consider right ventricular involvement in acute inferior infarct Abnormal ECG Compared to ECG 03/17/2021 19:06:47 Myocardial infarct finding now present Electronically Signed On 10-29-23 13:54:27 CDT by Arpit Rae
--- NOTE | 2023-10-29 13:55 | EKG ---
Test Date: 2023-10-28 Test Time: 08:21:35 Certified Activities Director: YOVANI MEASUREMENT RESULTS: Intervals: Rate: 55 VT: QRSD: 96 QT: 436 QTc: 417 Reese: P: VT: QRS: -5 T: 71 INTERPRETIVE STATEMENTS: Atrial fibrillation Inferior infarct, possibly acute Anterolateral infarct, possibly acute ACUTE IN Consider right ventricular involvement in acute inferior infarct Abnormal ECG Compared to ECG 10/28/2023 08:16:07 No significant changes Electronically Signed On 10-29-23 13:54:23 CDT by Arpit Rae
[2023-10-29] MEDS: MELATONIN 5 MG TABLET PO SCH (19:59)
[2023-10-29] MEDS ORDERED: INSULIN REGULAR (HUMAN) 100 UNIT/ML SQ SCH (20:00)
[2023-10-29] MEDS ORDERED: TRAZODONE 50 MG TABLET PO SCH (21:00)
[2023-10-30] MEDS: INSULIN REGULAR (HUMAN) 100 UNIT/ML SQ SCH
[2023-10-30] MEDS: NITROGLYCERIN 0.4 MG/TAB SL ONE (06:04)
[2023-10-30 06:11] LABS: Absolute Basophils 0.1 K/uL (0-0.5); Absolute Lymphocytes (CBC) 1.6 K/uL (0.7-4.9); Absolute Monocytes 1.7 K/uL (0.1-1.3); Absolute Neutrophil 17.7 K/uL (1.8-8.0); Basophils % 0.3 % (0-1.3); Hematocrit 42.3 % (39.6-49.0); Lymphocytes % 7.6 % (15.3-44.8); MCH 27.1 pg (27.0-35.0); MPV 8.3 fL (7.6-11.3); Monocytes % 8.1 % (3.3-12.3); Platelets 127 thou/uL (152-406); RBC Red Blood Cell Count 5.16 M/uL (4.33-5.43); Red Cell Distribution Width 16.8 % (12.1-15.2)
[2023-10-30 06:31] LABS: Magnesium 1.7 mg/dL (1.6-2.4)
[2023-10-30] MEDS: FAMOTIDINE 20 MG/2 ML VIAL IV ONE (12:41)
[2023-10-30] MEDS ORDERED: NA CHLORIDE 0.9% 1,000 ML IV SCH ×2 (13:00)
--- NOTE | 2023-10-30 13:00 | PN ---
Date of Progress Note: 10/30/2023 Subjective: The patient was admitted with small bowel obstruction, ileus. The patient had acidosis. Has acute kidney injury secondary to contrast-induced nephropathy. Patient had history of liver transplant. Patient feeling better today. Plan for to start liquid diet. Urine output stable. Objective: Vital Signs: Blood pressure 159/86, pulse of 96. Patient had good urine output of 800, positive of 1800. Chest: Clear to auscultation. Heart: S1, S2 regular. Abdomen: Soft. No tenderness. No guarding or rebound. Extremities: No edema. Neurologic: Alert. No focality. Laboratory Data: WBC 21, hemoglobin 14. Sodium 129, potassium 4, bicarb 27, BUN 78, creatinine 2.8, calcium 8.6, magnesium 1.7. Current Medications: The patient on include aspirin, levofloxacin, Zosyn, cetirizine, Tylenol, gabapentin 300 b.i.d., Pepcid, insulin, sodium bicarb. Assessment And Plan: 1. Acute kidney injury secondary to prerenal, superimposed with contrast- induced nephropathy. Currently, kidney function plateaued. I am going go ahead and discontinue bicarb drip. Switch the patient on normal saline. We will increase the rate to 100, and we will continue to monitor the patient. 2. Acidosis secondary to renal failure, resolved. Discontinue bicarb. 3. Hyperkalemia, resolved. 4. Hyponatremia, depletional. We will increase the rate of isotonic fluid and switch it to normal saline and we will follow up. 5. Diabetes, as by Primary. 6. Ileus. Patient will be started on liquid diet. We will follow up. Time spent examining the patient [id number] reviewing the data and clapper and the radiology placing order discussing the case with the patient discussing the case with the steam drier tender including hospitalist and nursing staff more than 55 minutes SHAINA Voice ID: [id number] Report ID: [id number] MOSHE
[2023-10-30] MEDS: MAGNESIUM SULFATE 1 gm IVPB 1 GM/100 ML BAG IV ONE (13:25)
[2023-10-30] MEDS: NA CHLORIDE 0.9% 1,000 ML IV SCH (13:27)
--- NOTE | 2023-10-30 13:36 | RAD REPORT ---
EXAM DESCRIPTION: RAD - Abdomen 1 View (KUB) - 10/30/2023 11:57 am CLINICAL HISTORY: illieus COMPARISON: Abdomen 1 View (KUB) dated 10/29/2023; Chest Single View dated 10/30/2023 TECHNIQUE: Single AP view of the abdomen. FINDINGS: Partial improvement of small bowel central abdominal gaseous distension. No air-fluid leve ls, free air, or pneumatosis. No suspicious calcifications. No significant bony abnormality. IMPRESSION: Partial improvement of central gaseous distention suggesting improving ileus.
--- NOTE | 2023-10-30 13:37 | RAD REPORT ---
EXAM DESCRIPTION: RADChest Single View10/30/2023 11:57 am CLINICAL HISTORY: rule out pneumonia COMPARISON: Abdomen 1 View (KUB) dated 10/30/2023; Abdomen 1 View (KUB) dated 10/29/2023; Chest Single View dated 10/28/2023; Chest Pa And Lat (2 Views) dated 05/27/2020bdomen 1 View (KUB) dated 10/30/2023 ; Abdomen 1 View (KUB) dated 10/29/2023; Chest Single View dated 10/28/2023; Chest Pa And Lat (2 Views) dated 05/27/2020 TECHNIQUE: Portable AP view of the chest. FINDINGS: Confluent peripheral right mid lung airspace opacity, appears progressive since the prior exam. No pneumothorax or effusion. The cardiomediastinal contours are unremarkable. IMPRESSION: Small peripheral right midlung opacity appears progressive since the prior exam, may ref lect atelectasis or focal pneumonitis.
[2023-10-30] MEDS: PIPER TAZO 2.25 GM in NA CHLORIDE 0.9% 50 ML IV SCH (13:54)
--- NOTE | 2023-10-30 14:50 | P.PN ---
Subjective Date of Service: 10/30/23 Chief Complaint: Nausea and vomitting Patient reported having chest pain this morning, now it is resolved with NTG. Review of Systems 10-point ROS is otherwise unremarkable Physical Examination - Vital Signs Temperature: 97.4 F Blood Pressure: 116/71 Pulse: 54 Respirations: 20 Pulse Ox (%): 92 - Physical Exam General: Alert, In no apparent distress HEENT: Atraumatic, PERRLA, EOMI Neck: Supple, JVD not distended Respiratory: Clear to auscultation bilaterally, Normal air movement Cardiovascular: Regular rate/rhythm, Normal S1 S2 Gastrointestinal: Normal bowel sounds, No tenderness Musculoskeletal: No tenderness Integumentary: No rashes Neurological: Normal speech, Normal tone, Normal affect Lymphatics: No axilla or inguinal lymphadenopathy - Studies Medications List Reviewed: Yes Assessment And Plan - Current Problems (Diagnosis) (1) STEMI (ST elevation myocardial infarction) Current Visit: Yes Status: Acute Plan: EKG shown ST elevation inferior leads, patient was taken emergently to vat house laborer, PCI of 100% occluded RCA was done with Synergy 2.5x38 overlapped with 3.0x32 mm HERLINDA was done, patient had no reflow due to heavy thrombus burden and multiple rounds of Nepride was given with neosynephrine and atropine due to significant bradycardia, OTIS 2 flow was established at the end. ASA 81 mg daily for life. Brilinta 90 mg po BID for 12 months Lipitor 40 mg daily if patient is having more chest pain today and overnight then will consider brining to vat house laborer in am for another look at his stents. (2) Afib Current Visit: No Status: Acute Plan: currently in sinus rhythm, no anticoagulation as patient had Lariat procedure. (3) Hypertension Current Visit: No Status: Acute Plan: Hold medications for now as patient BP is low.
--- NOTE | 2023-10-30 16:09 | PN ---
Date of Progress Note: 10/30/2023 Subjective: The patient was seen this morning for followup. No new complaints or problems reported by him. When I saw him yesterday as per my discussion with the nursing staff, he had 3-4 small bowel movements throughout the day. He had 1 episode of nausea and vomiting after I saw him and the abdom inal x-ray had shown evidence of ileus as suspected. So patient was kept NPO, and continued to recei ve IV fluid, IV antibiotic. Early this morning, nurse contacted me and informed me that the patient was complaining of chest pain. So, nitroglycerin was ordered sublingual and after 2 doses, nurse was not able to give him third dose because his systolic blood pressure dropped less than 100. Cardiolo gist, Dr. Rae, was notified about it and he will evaluate the patient. His chest pain has subside d after nitroglycerin. The patient when I saw him, he was having some left shoulder pain which he re ports that ever since he came into the hospital, he is having some intermittent left shoulder pain bu t no more chest pain. The way, he describes his chest pain as tightness type of feeling in the cente r and the left side of the chest that happened earlier this morning, but after it has resolved comple tely, he has not had any recurrence of it. No nausea or vomiting today. He had 1 small bowel moveme nt today again. Objective: Vital Signs: Reviewed. The patient remains afebrile. HEENT: Unremarkable. Lungs: Clear to auscultation. Heart: Sounds normal. Abdomen: Soft. Bowel sounds normal. No guarding, rigidity, tenderness, distention. The patient herring d slight distention in the upper abdominal part which has resolved today. Extremities: No leg edema. Laboratory Data: Chest x-ray shows density in the right lower lobe area, and the abdominal x-ray monica ws significant improvement in the ileus pattern compared to yesterday. Official radiology report is pending. White count 21, hemoglobin 14, platelets 127. Sodium 129, potassium 4, chloride 191, bicar b 27, BUN 78, creatinine 2.89, glucose 190, magnesium 1.7. Impression: 1.STEMI. 2.Coronary artery disease. 3.Pneumonia. 4.Urinary tract infection. 5.Ileus. 6.Acute kidney injury. 7.Diabetes mellitus. Plan: We will go ahead and continue current antiplatelet therapy. Continue high-dose statin therapy . We will continue to follow with outside barrel lathe operator. For acute kidney injury, we will continue to follow up with the dental appliance mechanic and we will monitor electrolytes and renal function with blood work tomorro w morning. The patient's ileus pattern has improved. We will start him on clear liquid diet today. He is on Levaquin for pneumonia and urinary tract infection. Urine culture result is pending, but k eep in mind that urine culture was probably collected after first dose of antibiotic was given. Cons idering his WBC count has not improved, I will go ahead and add Zosyn 2.25 g IV every 8 hours. Physi jaimie Therapy was consulted yesterday. Today, being Tuesday, probably there will not be any therapist, but starting tomorrow, we should have physical therapy start to ambulate the patient as he tolerates. Details and plan of treatment discussed with the patient and the patient's who was at bedside. We will also go ahead and add famotidine 20 mg IV daily. SCDs in place for DVT prophylaxis, and we will continue that. KATRIN/MODL Voice ID: [id number] Report ID: [id number]
[2023-10-31 05:18] LABS: Absolute Lymphocytes (CBC) 1.2 K/uL (0.7-4.9); Absolute Monocytes 1.5 K/uL (0.1-1.3); Absolute Neutrophil 15.7 K/uL (1.8-8.0); Basophils % 0.2 % (0-1.3); Eosinophils % 0.1 % (0-4.4); Hematocrit 39.8 % (39.6-49.0); Hemoglobin 13.1 g/dL (13.6-17.9); Lymphocytes % 6.6 % (15.3-44.8); MCH 27.2 pg (27.0-35.0); MCV 82.6 fL (80-100); MPV 8.5 fL (7.6-11.3); Monocytes % 8.3 % (3.3-12.3); Neutrophils % 84.8 % (41.7-73.7); Nucleated RBC Absolute Count 0.1 (0-0); Nucleated Red Blood Cells % 0.3 % (0-0); Platelets 91 thou/uL (152-406); RBC Red Blood Cell Count 4.82 M/uL (4.33-5.43); Red Cell Distribution Width 16.4 % (12.1-15.2)
[2023-10-31 06:38] LABS: Blood Morphology Comment NOTED (NOT SEEN); Platelet Estimate DECR; Polychromasia 1+; White Blood Cell Scan OK (OK)
--- NOTE | 2023-10-31 07:08 | ECHO ---
HEIGHT: 5 ft 6 in WEIGHT: 186 lb 12.8 oz DATE OF STUDY: 10/28/[address]: Colin Castellanos MD 2-DIMENSIONAL: YES M.MODE: YES DOPPLER: YES COLOR FLOW: YES TDS: PORTABLE: YES DEFINITY: BUBBLE STUDY: DIAGNOSIS: ST ELEVATION MYOCARDIAL INFARCTION CARDIAC HISTORY: CATHERIZATION: YES SURGERY: NO PROSTHETIC VALVE: NO PACEMAKER: NO MEASUREMENTS (cm) DIASTOLIC (NORMALS) SYSTOLIC (NORMALS) IVSd 1.2 (0.6-1.2) LA Diam 4.1 (1.9-4.0) LVEF 35-40% LVIDd 3.4 (3.5-5.7) LVIDs 2.7 (2.0-3.5) %FS LVPWd 1.2 (0.6-1.2) Ao Diam 3.2 (2.0-3.7) 2 DIMENSIONAL ASSESSMENT: RIGHT ATRIUM: NORMAL LEFT ATRIUM: MODERATE DILATED RIGHT VENTRICLE: MILD DILATED LEFT VENTRICLE: NORMAL TRICUSPID VALVE: MILD TRICUSPID REGURGITATION MITRAL VALVE: MILD MITRAL REGURGITATION PULMONIC VALVE: NORMAL AORTIC VALVE: NORMAL PERICARDIAL EFFUSION: NONE AORTIC ROOT: NORMAL LEFT VENTRICULAR WALL MOTION: MODERATE GLOBAL HYPOKINESIS WITH INFERIOR WALL AKINESIS DOPPLER/COLOR FLOW: DIASTOLIC DYSFUNCTION COMMENTS: 1. MODERATE REDUCED LEFT VENTRICULAR SYSTOLIC FUNCTION, EJECTION FRACTION 35-40%, MODERATE HYPOKINESIS WITH INFERIOR WALL/ APICAL AKINESIS 2. MILD DILATED RIGHT VENTRICLE WITH MODERATE REDUCED RIGHT VENTRICULAR FUNCTION AND MODERATE TO SEVERE HYPOKINESIS 3. MODERATE DIALTED LEFT ATRIUM 4. ELEVATED FILLING PRESSURE (RIGHT ATRIAL PRESSURE GREATER THAN 20 mmHg) TECHNOLOGIST: KIRA NEAL
[2023-10-31] MEDS: FAMOTIDINE 20 MG/2 ML VIAL IV SCH (08:29)
--- NOTE | 2023-10-31 09:33 | P.PN ---
Subjective Date of Service: 10/31/23 Chief Complaint: Nausea and vomitting Subjective: No new changes, No C/O voiced, Tolerating diet, Ambulating, Improving Review of Systems 10-point ROS is otherwise unremarkable Physical Examination - Vital Signs Temperature: 98.1 F Blood Pressure: 102/86 Pulse: 54 Respirations: 16 Pulse Ox (%): 99 - Physical Exam General: Alert, In no apparent distress HEENT: Atraumatic, PERRLA, EOMI Neck: Supple, JVD not distended Respiratory: Clear to auscultation bilaterally, Normal air movement Cardiovascular: Regular rate/rhythm, Normal S1 S2 Gastrointestinal: Normal bowel sounds, No tenderness Musculoskeletal: No tenderness Integumentary: No rashes Neurological: Normal speech, Normal tone, Normal affect Lymphatics: No axilla or inguinal lymphadenopathy - Studies Medications List Reviewed: Yes Assessment And Plan - Current Problems (Diagnosis) (1) STEMI (ST elevation myocardial infarction) Current Visit: Yes Status: Acute Plan: EKG shown ST elevation inferior leads, patient was taken emergently to labor specialist, PCI of 100% occluded RCA was done with Synergy 2.5x38 overlapped with 3.0x32 mm HERLINDA was done, patient had no reflow due to heavy thrombus burden and multiple rounds of Nepride was given with neosynephrine and atropine due to significant bradycardia, OTIS 2 flow was established at the end. ASA 81 mg daily for life. Brilinta 90 mg po BID for 12 months Lipitor 40 mg daily (2) Afib Current Visit: No Status: Acute Plan: currently in sinus rhythm, no anticoagulation as patient had Lariat procedure. (3) Hypertension Current Visit: No Status: Acute Plan: Hold medications for now as patient BP is low. (4) Acute on chronic combined systolic and diastolic heart failure Current Visit: Yes Status: Acute Plan: Echo shows elevated filling pressures, would recommend D/C fluids and start patient on Lasix 40 mg IV BID, will discuss with Nephrology.
[2023-10-31] MEDS: FUROSEMIDE 40 MG/4 ML VIAL IV ONE (10:21)
[2023-10-31] MEDS: FUROSEMIDE 100 MG in NA CHLORIDE 0.9% 90 ML IV SCH (10:22)
[2023-10-31 11:31] VITALS: BMI 32.1
--- NOTE | 2023-10-31 17:36 | PN ---
Date of Progress Note: 10/31/2023 Subjective: The patient is admitted to ICU primarily and he was admitted for small bowel obstruction and ileus. He was found to have metabolic acidosis and was started on bicarbonate drip. The patien t has acute kidney injury secondary to contrast-induced nephropathy. He has multiple medical problem s including history of liver transplant. The patient remains in ICU. He received IV fluids for hypo volemia and acute kidney injury. He developed fluid overload and there is progressively worse hypona tremia secondary to volume overload. The patient is started on Lasix today. Urine output remains no noliguric. Review of Systems: Denies chest pain, palpitation. Objective: Lungs: Diminished breath sounds at bases. Heart: S1, S2. No pericardial friction rub. Abdomen: Soft, obese, nontender. No rebound. No guarding. Extremities: Edema present in both legs. Laboratory Data: Hemoglobin 13.1, WBC 18.5, platelet count 91,000, neutrophils 84.8, lymphocytes 6.6 , sodium 128, potassium 4.0, chloride 93, CO2 23, BUN 92, creatinine 3.22, glucose 252, calcium 7.8, magnesium 2.0. Albumin is pending. Impression And Plan: 1.Acute kidney injury secondary to contrast-induced nephropathy, fluid overload, hyponatremia, dilut ional due to fluid overload. Patient will continue p.o. fluid restriction, low-sodium diet. Patient has dilutional hyponatremia. Plan is to check TSH and cortisol level and to continue diuretics with Lasix. The patient may be a candidate for Lasix drip. 2.Metabolic acidosis, resolved. Patient completed sodium bicarbonate drip and it was discontinued. 3.Hyperkalemia, resolved. Monitor electrolytes. 4.Diabetes mellitus. Continue insulin. 5.Ileus. The patient was started on liquid diet. EB/MODL Voice ID: [id number] Report ID: [id number]
[2023-11-01] MEDS: ACETAMINOPHEN 500 MG TAB PO PRN (02:04)
--- NOTE | 2023-11-01 06:14 | PN ---
Date of Progress Note: 10/31/2023 Subjective: The patient was seen this morning for followup. He was in ICU, sleeping, not in any dis tress. Had uneventful night. No new complaints or problems reported by nursing staff. Objective: Vital Signs: Reviewed. HEENT: Unremarkable. Lungs: Clear to auscultation. Heart: Sounds normal. Abdomen: Soft. Bowel sounds normal. No guarding, rigidity, tenderness, distention. Extremities: No leg edema. Laboratory Data: WBC 18.5, which is lower compared to last few days, hemoglobin 13.1, platelets 91. Sodium 128, potassium 4, chloride 93, bicarb 23, BUN 92, creatinine 3.22, glucose 252, magnesium 2. Impression: 1.STEMI. 2.Coronary artery disease. 3.Urinary tract infection. 4.Pneumonia. 5.Thrombocytopenia. 6.Type 2 diabetes mellitus. Plan: We will go ahead and continue current empiric antibiotics with his Levaquin and Zosyn. WBC co unt has shown improvement since Zosyn was added to Levaquin yesterday. The patient's platelet count has dropped down a little bit. We will continue to monitor that he is on anti-platelet therapy after STEMI. Renal function has deteriorated to some extent today and we will continue to follow with nep hrologist for that. IV fluid will be continued and the patient is medically stable for transfer out of ICU to regular room and see copy of transfer order for more details. Physical therapy should start working with the patient. Continue current diabetes management with insulin per order. KATRIN/MODL Voice ID: [id number] Report ID: [id number]
[2023-11-01 08:27] LABS: Absolute Eosinophils 0.1 K/uL (0-0.5); Absolute Lymphocytes (CBC) 1.1 K/uL (0.7-4.9); Absolute Monocytes 1.1 K/uL (0.1-1.3); Absolute Neutrophil 10.6 K/uL (1.8-8.0); Basophils % 0.2 % (0-1.3); Eosinophils % 0.6 % (0-4.4); Hematocrit 41.4 % (39.6-49.0); Hemoglobin 13.5 g/dL (13.6-17.9); Lymphocytes % 8.3 % (15.3-44.8); MCH 27.2 pg (27.0-35.0); MCHC 32.5 g/dL (32.0-36.0); MCV 83.8 fL (80-100); MPV 9.4 fL (7.6-11.3); Monocytes % 8.4 % (3.3-12.3); Neutrophils % 82.5 % (41.7-73.7); Nucleated Red Blood Cells % 0.3 % (0-0); Platelets 102 thou/uL (152-406); RBC Red Blood Cell Count 4.94 M/uL (4.33-5.43); Red Cell Distribution Width 16.5 % (12.1-15.2)
[2023-11-01 08:32] LABS: Anion Gap 13.1 mEq/L (5.0-15.0); Magnesium 2.3 mg/dL (1.6-2.4); Potassium 4.1 mEq/L (3.5-5.1)
--- NOTE | 2023-11-01 12:46 | EKG ---
Test Date: 2023-10-30 Test Time: 05:42:47 Irradiated Fuel Handler: ELLYN MEASUREMENT RESULTS: Intervals: Rate: 56 NH: QRSD: 90 QT: 490 QTc: 472 Sawyer: P: NH: QRS: 55 T: 71 INTERPRETIVE STATEMENTS: Atrial fibrillation with slow ventricular response with a competing junctional pacemaker Low voltage QRS Inferior infarct, possibly acute Cannot rule out Anterior infarct, age undetermined Lateral injury pattern Consider right ventricular involvement in acute inferior infarct Abnormal ECG Compared to ECG 10/28/2023 08:21:35 Low QRS voltage now present Myocardial infarct finding still present Electronically Signed On 11-01-23 12:43:13 CDT by Arpit Rae
[2023-11-01] MEDS: FUROSEMIDE 100 MG in NA CHLORIDE 0.9% 90 ML IV SCH (15:00)
--- NOTE | 2023-11-01 15:14 | RAD REPORT ---
EXAM DESCRIPTION: Miriam Single View11/01/2023 3:07 pm CLINICAL HISTORY: Chest pain COMPARISON: October 30, 2023 FINDINGS: Small opacity lateral mid right lung without significant change Left lung appears clear of acute straight. Heart is borderline enlarged
[2023-11-01] MEDS: METOLAZONE 5 MG TABLET PO SCH (16:16)
--- NOTE | 2023-11-01 17:26 | PN ---
Date of Progress Note: 11/01/2023 Subjective: The patient was admitted to the hospital with altered mental status. The patient had acute kidney injury secondary to cardiorenal and contrast-induced nephropathy. The echocardiogram showed elevation in filling pressure. The patient was started on Lasix drip. Objective: Vital Signs: Blood pressure 105/69, pulse of 50, afebrile. The patient had urine output of 950. Chest: Crackles, bilateral. Heart: S1, S2. Systolic murmur. Abdomen: Soft, nontender. Extremity: No edema. Neurologic: Alert. No focality. Laboratory Data: Hemoglobin 13.5, sodium 127, potassium 4.1, bicarb 27, BUN 91, creatinine 3.6, GFR of 16, calcium 8.3, magnesium 2.3. Chest x-ray, cardiomegaly with congestion. Current Medications: The patient on, it includes cetirizine, levofloxacin, Zosyn, atorvastatin, Brilinta, citalopram, Lasix 10 mg per hour. Assessment And Plan: 1. Acute kidney injury secondary to cardiorenal, contrast-induced nephropathy, nonoliguric. No hyperkalemia. No acidosis. Kidney function continued to decline. I have a long discussion with the patient and the by bedside that I am going to continue with the diuresis, but if kidney function continued to decline, patient may need to be initiated on renal replacement therapy. We will keep the patient NPO over the night. We will follow up the lab in the morning. If kidney function deteriorate, we will proceed with dialysis. If kidney function turn around, at that time, we will continue to monitor. 2. Hyponatremia secondary to cardiorenal. We will continue diuresis. 3. Congestive heart failure with exacerbation, overvolume. I will increase the Lasix to 20 mg per hour. As above, if kidney function continued to decline, patient may need to initiate renal replacement therapy. We will add metolazone. 4. Hypertension. We will utilize blood pressure for more diuresis. 5. Pneumonia. Continue current antibiotic. 6. Eaa-CM-hxbkoynup myocardial infarction, as by Cardiology. We will optimize the fluid status. Time spent examining the patient [id number] reviewing the data and clapper and the radiology placing order discussing the case with the patient discussing the case with the steam box hand including hospitalist and nursing staff more than 55 minutes SHAINA Voice ID: [id number] Report ID: [id number] MOSHE
--- NOTE | 2023-11-01 20:45 | PN ---
Date of Progress Note: 11/01/2023 Subjective: The patient was seen this morning for followup. His was with him at bedside. No n ew complaints or problems reported by him. He has significant generalized weakness yesterday. He wa s not able to even stand up with Physical Therapy. He is tolerating liquid diet very well. Objective: Vital Signs: Reviewed. Intake output records reviewed. HEENT: Unremarkable. Lungs: Clear to auscultation. Heart: Sounds normal. Abdomen: Soft. Bowel sounds normal. No guarding, rigidity, tenderness, distention. Extremities: No leg edema. Laboratory Data: White count 12.8, hemoglobin 13.5, platelets 102. Sodium 127, potassium 4.3, chlor jonathan 91, bicarb 27, BUN 91, creatinine 3.69. Magnesium 2.3. Impression: 1.ST elevation myocardial infarction. 2.Coronary artery disease. 3.Acute kidney injury. 4.Diabetes mellitus. 5.Thrombocytopenia. 6.Urinary tract infection. 7.Pneumonia. Plan: The patient's urine culture is growing yeast. No bacterial growth so far. We will repeat [facility] st x-ray per order and continue current empiric antibiotic. The patient has responded very well to c urrent antibiotic and we will continue that. Unfortunately, renal function is deteriorating and we w ill continue to follow with emergency vehicle operations instructor. Cadet catheter was removed today and after removal of Fole y catheter, patient has not been able to void and bladder scan was done 2 different times and has monica wn very minimal amount of urine. Last bladder scan this evening showed only 21 cc of urine in the bl adder. Tool Grinder Operator External has evaluated him today and he is planning dialysis to be started tomorrow ameya adams on his kidney function and urine output overnight. I will see him tomorrow morning for followup . Social Service was consulted today to help with discharge planning and chances are very likely gomez t the patient may need to go to senior living facility as he may not be able to go directly home fr om the hospital. All these details were discussed with this morning. KATRIN/MODL Voice ID: [id number] Report ID: [id number]
[2023-11-02 03:58] LABS: STOOL CONSISTENCY Formed/Solid (soft)
[2023-11-02 03:59] LABS: C.diff Antigen/Toxin Ag neg : Tox neg (NEG : NEG); CDIFF INTERNAL NEG CONTROL White Background (WHITE BKGD)
--- NOTE | 2023-11-02 07:29 | RAD REPORT ---
EXAM DESCRIPTION: Miriam Single View11/02/2023 5:57 am CLINICAL HISTORY: Chest pain COMPARISON: November 01, 2023 FINDINGS: Mild mid lateral right lung opacity unchanged Left lung appears clear of acute infiltrate The heart is mildly enlarged IMPRESSION: Mild mid lateral right lung opacity without significant change
[2023-11-02 07:58] LABS: Absolute Eosinophils 0.1 K/uL (0-0.5); Absolute Lymphocytes (CBC) 1.1 K/uL (0.7-4.9); Absolute Monocytes 1.5 K/uL (0.1-1.3); Absolute Neutrophil 11.6 K/uL (1.8-8.0); Basophils % 0.2 % (0-1.3); Eosinophils % 0.7 % (0-4.4); Hemoglobin 13.5 g/dL (13.6-17.9); Lymphocytes % 7.7 % (15.3-44.8); MCHC 32.8 g/dL (32.0-36.0); MCV 82.4 fL (80-100); MPV 9.1 fL (7.6-11.3); Monocytes % 10.3 % (3.3-12.3); Neutrophils % 81.1 % (41.7-73.7); Nucleated Red Blood Cells % 0.3 % (0-0); Platelets 106 thou/uL (152-406); RBC Red Blood Cell Count 4.98 M/uL (4.33-5.43); Red Cell Distribution Width 16.5 % (12.1-15.2)
[2023-11-02 08:17] LABS: Anion Gap 15.7 mEq/L (5.0-15.0); Magnesium 2.2 mg/dL (1.6-2.4); Potassium 3.7 mEq/L (3.5-5.1)
--- NOTE | 2023-11-02 12:24 | PN ---
Date of Progress Note: 11/02/2023 Subjective: The patient was admitted to the hospital with acute kidney injury secondary to cardiorenal. The patient had contrast. The patient started being oliguric. Yesterday, we increased Lasix, added metolazone, made some urine, but still oliguric, still has shortness of breath. Kidney function continued to decline. Physical Examination: Vital Signs: Blood pressure 124/84, pulse of 50, afebrile, urine output only 120. Chest: Crackles bilateral. Heart: S1, S2. Systolic murmur. Abdomen: Soft, nontender. Extremities: Trace edema. Neurologic: Alert. No focality. Laboratory Data: Hemoglobin 13.5. Sodium 126, potassium 3.7, bicarb 25, BUN 100, creatinine 4.1, GFR of 14, calcium 8.5, magnesium 2.2. Current Medications: Include: 1. Lasix drip. 2. Aspirin. 3. Levaquin. 4. Brilinta. 5. Gabapentin. 6. Lasix drip. 7. Pepcid. 8. Melatonin. Assessment And Plan: 1. Acute kidney injury secondary to contrast-induced nephropathy with elevated filling pressure, over volume. I am going to continue to diurese the patient. The patient had poor response. Given the marginal blood pressure, we will hold on the Lasix for the time being. The patient will stop it as we start dialysis. 2. I had long discussion with the patient and by bedside that we need to initiate renal replacement therapy, the patient and on agreement. We consulted Surgery, but waiting for catheter placement. 3. Hypertension, controlled, optimal. We will utilize blood pressure for more ultrafiltration and diuresis. 4. Anemia of chronic kidney disease. No need for RILEY. 5. Congestive heart failure with exacerbation. We will try to challenge the patient on dialysis today and we will monitor the patient. 6. Hyponatremia, will be corrected with dialysis. 7. Hypokalemia, the patient is going to be dialyzed on high potassium bath. Time spent examining the patient [id number] reviewing the data and clapper and the radiology placing order discussing the case with the patient discussing the case with the steam station supervisor including hospitalist and nursing staff more than 55 minutes SHAINA Voice ID: [id number] Report ID: [id number] MTDD
[2023-11-02] MEDS: LIDOCAINE 1% MPF 30 ML VIAL SQ SCH (14:30)
[2023-11-02] MEDS: FUROSEMIDE 100 MG in NA CHLORIDE 0.9% 90 ML IV SCH (15:57)
--- NOTE | 2023-11-02 17:42 | P.OP ---
Preoperative diagnosis: Need for Dialysis Postoperative diagnosis: Need for Dialysis Primary procedure: Placement of RIGHT Femoral Temporary Hemodialysis Catheter Secondary procedure: Ultrasound Guidance Anesthesia: 1% Lidocaine used Estimated blood loss: <8cc Specimen: None Findings: Dark, nonpulsatile blood returned Complications: None Implants: Temporary non-tunneled HD Catheter Fluids & blood products: Transferred to: Other Condition: Good
--- NOTE | 2023-11-02 18:06 | P.PN ---
Subjective Date of Service: 11/02/23 Chief Complaint: Nausea and vomitting Subjective: No new changes, No C/O voiced, Tolerating diet, Ambulating, Improving Patient reported having chest pain this morning, now it is resolved with NTG. Review of Systems 10-point ROS is otherwise unremarkable Physical Examination - Vital Signs Temperature: 97.5 F Blood Pressure: 115/77 Pulse: 51 Respirations: 16 Pulse Ox (%): 95 - Physical Exam General: Alert, In no apparent distress HEENT: Atraumatic, PERRLA, EOMI Neck: Supple, JVD not distended Respiratory: Clear to auscultation bilaterally, Normal air movement Cardiovascular: Regular rate/rhythm, Normal S1 S2 Gastrointestinal: Normal bowel sounds, No tenderness Musculoskeletal: No tenderness Integumentary: No rashes Neurological: Normal speech, Normal tone, Normal affect Lymphatics: No axilla or inguinal lymphadenopathy - Studies Microbiology Data (last 24 hrs): 10/28/23 08:44 Blood - Blood Aerobic Blood Culture - Final No growth in 5 days. 10/28/23 08:44 Blood - Blood Anaerobic Blood Culture - Final No growth in 5 days. 10/28/23 08:24 Blood - Blood Aerobic Blood Culture - Final No growth in 5 days. 10/28/23 08:24 Blood - Blood Anaerobic Blood Culture - Final No growth in 5 days. Medications List Reviewed: Yes Assessment And Plan - Current Problems (Diagnosis) (1) STEMI (ST elevation myocardial infarction) Current Visit: Yes Status: Acute Plan: EKG shown ST elevation inferior leads, patient was taken emergently to laborer vegetable farm, PCI of 100% occluded RCA was done with Synergy 2.5x38 overlapped with 3.0x32 mm HERLINDA was done, patient had no reflow due to heavy thrombus burden and multiple rounds of Nepride was given with neosynephrine and atropine due to significant bradycardia, OTIS 2 flow was established at the end. ASA 81 mg daily for life. Brilinta 90 mg po BID for 12 months Lipitor 40 mg daily (2) Afib Current Visit: No Status: Acute Plan: currently in sinus rhythm, no anticoagulation as patient had Lariat procedure. (3) Hypertension Current Visit: No Status: Acute Plan: Hold medications for now as patient BP is low. (4) Acute on chronic combined systolic and diastolic heart failure Current Visit: Yes Status: Acute Plan: Echo shows elevated filling pressures, patient did not tolerate IV lasix and kidney function is worsening, plan to initiate dialysis.
--- NOTE | 2023-11-02 19:00 | OP ---
Date of Procedure: 11/02/2023 Surgeon: Jose Briseno MD, Preoperative Diagnosis: Need for dialysis. Postoperative Diagnosis: Need for dialysis. Procedure Performed: Placement of right femoral temporary hemodialysis catheter using ultrasound jazzmine dance. Anesthesia: 1% lidocaine utilized. Estimated Blood Loss: Less than 8 cc. Specimen: None. Findings: Dark nonpulsatile blood return. Complications: None. Implants: Temporary non-tunneled hemodialysis catheter. Disposition: The patient remained in the floor bed in good condition throughout the procedure. Procedure In Detail: After informed consent was obtained, the patient was prepped and draped in the usual sterile fashion, after adequate anesthesia was achieved with 1% lidocaine in the area of the ri t femoral vein. This area was visualized using ultrasound guidance and cannulated with a microintr oducer set at the bedside on the first attempt under visualization. At this point, a micro wire was advanced without incident or complication. I then made a small anna incision overlying the insertion point and then placed a micro introducer sheath and the micro wire was removed, at this point. Todd dard wire was advanced at this point easily without incident or complication. Then, I performed sequ ential dilatation after removing the microintroducer sheath without incident or complication. The ca theter was then placed without incident or complication. The secondary wire was taken out and while it was caught out, at this point, dark red, nonpulsatile blood returned from both ports quite easily and were flushed quite easily until completely flushed with sterile saline until completely clear. T he patient then had the catheter secured using the attached nylon suture and a sterile dressing place d over top. The patient tolerated the procedure without incident or complication and remained in the bed in good condition throughout the procedure. All counts were correct at the end of the case. TK/MODL Voice ID: [id number] Report ID: [id number]
--- NOTE | 2023-11-02 19:33 | PN ---
Date of Progress Note: 11/02/2023 Subjective: Patient was seen this morning for followup. No new complaints or problems reported by inga thompson. He was lying in bed. Denies any new complaints. Objective: Vital Signs: Reviewed. HEENT: Unremarkable. Lungs: Clear to auscultation. Heart: Sounds normal. Abdomen: Soft. Bowel sounds normal. No guarding, rigidity, tenderness, distention. Extremities: No leg edema. Laboratory Data: White count 14.3, hemoglobin 13.5, platelets 106. Sodium 126, potassium 3.7, chlor jonathan 89, bicarb 25, BUN 100, creatinine 4.18, glucose 171, magnesium 2.2. Impression: 1.Acute kidney injury. 2.STEMI. 3.Type 2 diabetes mellitus. 4.Thrombocytopenia. 5.Pneumonia. 6.Urinary tract infection. 7.Generalized weakness. Plan: Patient's renal function has steadily deteriorated during this hospitalization and nephrologis t is on the case and they have recommended hemodialysis to be started. So today dialysis access cath eter was placed and the patient will start hemodialysis sometime later today. We will continue curre nt antibiotics for his pneumonia and urinary tract infection problems. Continue current insulin shyla gement for diabetes. We will continue his antiplatelet therapy and statin therapy for his coronary artery disease and STEMI. I will see him tomorrow for followup. KATRIN/MODL Voice ID: [id number] Report ID: [id number]
--- NOTE | 2023-11-03 18:36 | PN ---
Date of Progress Note: 11/03/2023 Subjective: The patient was admitted to the hospital with acute kidney injury secondary to contrast and the patient's kidney function deteriorated, developed overvolume. For that reason, patient was i nitiated on dialysis, had session of dialysis yesterday. Patient started to have good urine output. Creatinine today is with significant improvement, but apparently this lab was done in the middle of dialysis. Objective: Vital Signs: Blood pressure 125/79, pulse of 46. Chest: Faint rales, bilateral. Heart: S1, S2. Systolic murmur. Abdomen: Soft, nontender. Extremity: Trace edema. Neurologic: Alert. No focality. Laboratory Data: WBC 14.3, hemoglobin 13.5, sodium 146, potassium 4, bicarb 30, BUN 27, calcium 9. Current Medications: The patient on, it includes aspirin, cetirizine, levothyroxine, , regina rvastatin, gabapentin, Lasix drip, and tacrolimus. Assessment And Plan: 1.Acute kidney injury secondary to contrast-induced nephropathy, cardiorenal, overvolume. I am darrin g to continue the patient on dialysis. I will follow up the lab tomorrow and we will decide about if the patient will need a PermCath or if he is going to have some recovery. We will follow up the pat ient. 2.Hypertension. We will utilize blood pressure for more diuresis. I am going to go ahead and disco ntinue Lasix drip, place the patient on oral to avoid low blood pressure. Continue metolazone. 3.Congestive heart failure with exacerbation. Continue diuresis as above. 4.Liver transplant. Tacrolimus level on the goal. We will follow up with the Primary. VIKTORIA/MAIKEL Voice ID: [id number] Report ID: [id number]
[2023-11-04 07:41] LABS: Absolute Basophils 0.1 K/uL (0-0.5); Absolute Eosinophils 0.2 K/uL (0-0.5); Absolute Lymphocytes (CBC) 1.3 K/uL (0.7-4.9); Absolute Monocytes 1.5 K/uL (0.1-1.3); Absolute Neutrophil 9.5 K/uL (1.8-8.0); Anion Gap 15.9 mEq/L (5.0-15.0); Basophils % 0.7 % (0-1.3); Eosinophils % 1.7 % (0-4.4); Hematocrit 42.7 % (39.6-49.0); Hemoglobin 13.8 g/dL (13.6-17.9); Lymphocytes % 10.3 % (15.3-44.8); MCH 27.1 pg (27.0-35.0); MCHC 32.4 g/dL (32.0-36.0); MCV 83.5 fL (80-100); MPV 9.5 fL (7.6-11.3); Magnesium 2.3 mg/dL (1.6-2.4); Monocytes % 11.6 % (3.3-12.3); Neutrophils % 75.7 % (41.7-73.7); Nucleated Red Blood Cells % 0.3 % (0-0); Platelets 95 thou/uL (152-406); Potassium 3.9 mEq/L (3.5-5.1); RBC Red Blood Cell Count 5.11 M/uL (4.33-5.43); Red Cell Distribution Width 17.2 % (12.1-15.2)
[2023-11-04] MEDS: FUROSEMIDE 40 MG TABLET PO SCH (09:24)
[2023-11-04] MEDS: ALBUMIN HUMAN 25% 100 ML IV ONE (15:30)
--- NOTE | 2023-11-04 16:33 | PN ---
Date of Progress Note: 11/03/2023 Subjective: The patient was seen this morning for followup. He was lying in bed, not in distress. No new complaints or problems reported by him. Denies any chest pain or shortness of breath. He did have dialysis yesterday and tolerated that very well. Has dialysis access catheter in the right silvia in. Objective: Vital Signs: Reviewed. HEENT: Unremarkable. Lungs: Clear to auscultation. Heart: Sounds normal. Abdomen: Soft. Bowel sounds normal. No guarding, rigidity, tenderness, distention. Extremities: No leg edema. Impression: 1.ST-elevation myocardial infarction. 2.Coronary artery disease. 3.Acute kidney injury. 4.Pneumonia. 5.Urinary tract infection. 6.Generalized weakness. Plan: We will go ahead and continue current antibiotic. We will repeat blood work tomorrow. Contin ue to follow with social insurance specialist for dialysis support and Physical Therapy to continue to work with the patient. Social Service is assisting the patient and family for discharge planning. Patient will b e going to alf facility upon discharge. Need for dialysis after discharge will be decide d by social insurance specialist depending on how his renal function is. I will see him tomorrow for followup. We will continue current antibiotics. KATRIN/MODL Voice ID: [id number] Report ID: [id number]
--- NOTE | 2023-11-04 19:08 | PN ---
Date of Progress Note: 11/04/2023 Subjective: The patient was seen this morning for followup. No new complaints or problems reported by the patient. Objective: General: He was lying in bed, not in distress. Vital Signs: Reviewed. HEENT: Unremarkable. Lungs: Clear to auscultation. Heart: Sounds normal. Abdomen: Soft. Bowel sounds normal. No guarding, rigidity, tenderness, distention. Extremities: No leg edema. Laboratory Data: White count 12.6, hemoglobin 13.8, platelets 95. Sodium 132, potassium 3.9, chlori de 98, bicarb 22, BUN 79, creatinine 3.91, glucose 169, magnesium 2.3. Yesterday's creatinine was 1. 31, but it is important to note that this specimen was collected actually while the patient was getti ng dialysis as per my discussion with global category manager. Impression: 1.STEMI. 2.Acute kidney injury. 3.Coronary artery disease. 4.Pneumonia. 5.Urinary tract infection. Plan: We will go ahead and continue current medications. Continue current antibiotics. We will con tinue to follow up with global category manager and I did talk to Dr. Lowry and looking at today's creatinine , Dr. Lowry is now going to request general surgeon to put a PermCath, so the patient can continue dialysis post discharge from the hospital and he will continue to follow up on outpatient basis to s at what point the patient might be able to stop dialysis. We are hoping that this dialysis is tem porary, but only time will tell us. All these details were discussed with the patient as well. I herring ve communicated details with Social Service regarding this as well as [facility], where he is going and possible discharge to [facility] on Tuesday or Tuesday. I will see him tomorrow for followup. KATRIN/MODL Voice ID: [id number] Report ID: [id number]
[2023-11-04] MEDS: ENSURE HIGH PROTEIN 237 ML CAN PO SCH (20:55)
[2023-11-05] MEDS: CLOPIDOGREL 75 MG TABLET PO ONE (10:22)
--- NOTE | 2023-11-05 13:06 | PN ---
Date of Progress Note: 11/05/2023 Subjective: The patient was seen this morning for followup. He was lying in bed on nasal cannula ox ygen at 2-3 L/minute. Not using any accessory muscles of respiration. He appeared weaker than neyda l and did not communicate much today, not interacting much. was present with him at bedside and has noticed this same pain that he is not communicating much and not interacting much. Physical Examination: Vital Signs: Reviewed. Temperature 96.9, pulse 43, respiratory rate 18, blood pressure 130/66, oxyg en saturation 94%. HEENT: Unremarkable. Lungs: Clear to auscultation. Heart: Sounds normal. Abdomen: Soft. Bowel sounds normal. No guarding, rigidity, tenderness, or distention. Extremities: No leg edema. Laboratory Data: There are no new labs today. Yesterday's lab results reviewed. Impression: 1.ST-elevation myocardial infarction. 2.Coronary artery disease. 3.Acute kidney injury. 4.Pneumonia. 5.Urinary tract infection. 6.Generalized weakness. Plan: We will go ahead and continue current antibiotics per order. The patient will continue his as pirin. Yesterday, I did communicate details with associate of science in nursing and for patient's acute kidney injury, so far he had 2 sessions of dialysis and yesterday creatinine has gone up again to 3.9, so nephrolog ist has recommended a PermCath and after that plan will be to discharge him to go to shelter facility, which will be at [facility]. I did communicate with the arts administrator at [facility], so that way they can start requesting authorization from insurance company. Meanwhile, I communi cated with our social welfare administrator regarding the same, which is plan is to get PermCath done hopefully next week and then discharge probably Tuesday or Tuesday. Meanwhile, I communicated with our cardiolog ist, Dr. Rae and the patient is on aspirin and Brilinta because of his recent STEMI and Dr. Rae has informed me that the patient cannot stop his antiplatelet therapy even for invasive procedure [facility] placement of PermCath catheter placement and this will increase his risk of bleeding and he will b e at high risk of bleeding complications and we will have to handle the bleeding complication as best as we can since we cannot stop this antiplatelet therapy in view of recent STEMI and Dr. Rae has communicated all these details with Dr. Briseno as well. So, I discussed with Dr. Rae to see if w e can change from Brilinta to Plavix and if Plavix will have same level of benefit as Brilinta does b ut less chances of bleeding complications and Dr. Rae has agreed with that idea, so he has suggest ed as of today to stop Brilinta and start patient on Plavix with a loading dose of 300 mg today and s tarting tomorrow 75 mg daily. I also communicated all these details with Dr. Briseno yesterday, so n ow plan is to put PermCath catheter probably on Tuesday and depending on how patient does after that, discharge can happen as early as Tuesday. The patient's was asking today regarding how long this can continue and possibility of hospice and I informed her that at this time it is lot premature for me to come with that recommendation of hospice care, but if his condition continues to decline, then we definitely need to have that discussion and she will communicate with his children as well. We also talked about living will and advanced directives. The has not had any discussion with t he patient regarding any heroic measures and she will communicate with his children regarding this, b ut she was also told that until the decision is made, he will remain full code. The patient has sign ificant generalized weakness and debility and this will require some long-term intensive physical the rapy at the shelter facility. KATRIN/MODL Voice ID: [id number] Report ID: [id number]
--- NOTE | 2023-11-05 13:21 | CON ---
Date of Consultation: 11/02/2023 Brief History Of Present Illness: The patient is a 78-year-old man, admitted on 10/27 with nausea, v omiting, diarrhea, chest and shoulder pain, and shortness of breath. He ultimately was brought to [facility] at that time and taken to the cardiac catheterization lab as he had significant concern fo r possible myocardial infarction. He had a stent placed at that time and has been placed on anticoag ulation/anti-platelet agent since then. Past Medical History: He had past medical history of senile dementia, allergic rhinitis, diabetes, h ypertension, hyperlipidemia, chronic atrial fibrillation, hepatitis C and cirrhosis of the liver, angela er cancer, hiatal hernia, ventral hernia, kidney stones, BPH, cervical spondylosis, lumbar spondylosi s and stenosis, thrombocytopenia, anxiety, depression, during this admission myocardial infarction. 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 Family History: Significant for myocardial infarction in his father and his mother had also cardiova scular disease of atrial fibrillation and stroke. Social History: Negative for smoking and alcohol use. Review of Systems: Ten-point review of systems is unable to obtain. Allergies: NO KNOWN DRUG ALLERGIES. Home Medications: Include amlodipine, atorvastatin, azelastine nasal spray, Breztri, Questran, [place], escitalopram, donepezil, everolimus, tacrolimus, Ngozi, fluticasone, gabapentin, losartan, me latonin, Lovaza, spironolactone, thiamine, and trazodone. Physical Examination: General: At the time of my examination, he is awake and alert, but confused. HEENT: He is normocephalic. His sclerae were anicteric. His mucous membranes are moist. Oropharyn x clear. Neck: Supple without JVD. Chest: Normal expansion and excursion. Cardiovascular: Regular rate and rhythm. Pulmonary: Clear to auscultation bilaterally. Abdomen: Soft. Extremities: No clubbing, cyanosis, or edema. Skin: Warm and dry. Laboratory Data: Revealed white blood cell count of 14.3, hemoglobin 13.5, hematocrit 41.0, platelet count is 106, neutrophils 81%. Sodium 126, potassium 3.7, chloride 89, carbon dioxide 25, BUN 100, creatinine 4.1, glucose is 171. Assessment/plan: This is a 78-year-old male, who had recent myocardial infarction and multiple compl ex medical comorbidities as described above. 1.He has continued to have worsening of his renal function with his recent cardiovascular procedure. I requested to place a temporary hemodialysis catheter as he has had some respiratory issues in add ition to his cardiovascular preexisting conditions and his worsening renal function has necessitated the need to initiate dialysis and as such, I have consulted for a temporary hemodialysis catheter. A t this point, we will likely plan to place a PermCath after he has been medically optimized. 2.I have explained the risks, benefits, and alternatives of placement of a bedside non-tunneled hemo dialysis catheter including, but not limited to bleeding, infection, damage to surrounding tissues, n eed for further operation and procedures, heart attack, blood clot, strokes, and other unforeseen com plications due to the procedure. The patient and his displayed understanding of above stated pl an and agreed to proceed as indicated. 3.As the patient is currently on anticoagulation, I have explained that he will be high risk for hugh cement of a permanent hemodialysis catheter. We will do so once he is medically optimized, transitio juliette, and cleared from a medical/cardiovascular standpoint. We will likely have to proceed on anticoa gulation and as such, he will be a high risk for bleeding complications and I have explained this als o in addition to possible pneumothorax for placing this up in the jugular vein when medically optimiz ed. The patient and his displayed understanding of the above stated plan and agreed to proceed with this as well and placement of the PermCath. We will do so when the patient has been medically optimized. Thank you for this interesting consult. SARAH/MAIKEL Voice ID: [id number] Report ID: [id number]
[2023-11-05] MEDS: ALPRAZOLAM 0.25 MG TABLET PO PRN (16:24)
--- NOTE | 2023-11-05 20:57 | PN ---
Date of Progress Note: 11/05/2023 Subjective: The patient is admitted to the hospital because of acute kidney injury secondary to card iorenal syndrome. The patient remains dialysis dependent. He developed an accelerated acute on lead tinner alessio kidney injury due to contrast-induced nephropathy. The patient became oliguric and dialysis was started. He has dialysis catheter, is awaiting for a tunneled dialysis catheter. Dialysis was start ed for volume control and metabolic clearance obtained with dialysis. Review of Systems: Denies chest pain, palpitation. Physical Examination: Lungs: Crackles bilaterally at bases. Heart: S1, S2. 2/6 systolic murmur. Abdomen: Soft, benign, nontender. Extremities: Slight edema. Impression And Plan: 1.Acute kidney injury secondary to contrast-induced nephropathy, cardiorenal syndrome. There is no evidence of renal function recovery. The patient will continue dialysis. Lasix is on hold due to tania rderline hypotension. Monitor blood pressure closely. Patient will need a tunneled dialysis cathete r and surgical consultation is requested for catheter placement. 2.Hypertension, controlled, optimal. Continue current treatment. 3.Anemia of chronic kidney disease. Monitor hemoglobin level. EB/MODL Voice ID: [id number] Report ID: [id number]
[2023-11-06 06:26] LABS: Anion Gap 15.1 mEq/L (5.0-15.0); Potassium 4.1 mEq/L (3.5-5.1)
[2023-11-06] MEDS: CLOPIDOGREL 75 MG TABLET PO SCH (09:13)
[2023-11-06] MEDS: D5 0.9 NS 1,000 ML IV SCH (11:11)
--- NOTE | 2023-11-06 13:12 | PN ---
Date of Progress Note: 11/06/2023 History Of Present Illness: The patient was seen this morning for followup and his and her 2 sisters were present at bedside with him. Yesterday evening nurse contacted me requesting medication to help him with some anxiety and agitation and Xanax 0.25 mg p.o. b.i.d. p.r.n. was ordered that he received 1 dose yesterday evening and that helped to calm him down. This morning, the patient's says that she has noted that his condition has declined as of this morning and he is hard to arouse and when I walked into the room today, I noted that he was sleeping with Elie-Calderon breathing pattern. During my visit, he did wake up and spoke couple of words to his and then went back to sleep. The patient had hard time swallowing this morning, so nursing staff had to crush his medications, but they were able to give his morning medication including Plavix this morning. Physical Examination: HEENT: Unremarkable. Lungs: Clear to auscultation. No wheezing. No rales. Heart: Sounds normal. Abdomen: Soft, bowel sounds normal. No guarding, rigidity, tenderness, distention. Extremities: No leg edema. Laboratory Data: Sodium 130, potassium 4.1, chloride 95, bicarb 24, BUN 90, creatinine 4.66, glucose 193. Impression: 1. ST-elevation myocardial infarction. 2. Coronary artery disease. 3. Acute kidney injury. 4. Pneumonia. 5. Respiratory failure. 6. Dysphagia. 7. End-stage renal disease. Plan: As of today, the patient's condition is even worse compared to yesterday. When I saw him yesterday, I noticed that he was not interacting as well and noticed the same thing the last 24-48 hours, but today there was even further decline with his breathing pattern showing Elie-Calderon breathing and I am definitely concerned about that now along with difficulty swallowing that we noticed this morning. The patient absolutely needs his antiplatelet therapy and anti-rejection medication and if he does not take any anti-platelet therapy, there is a significantly high risk of having stent closure and massive myocardial infarction leading to and obviously he needs his anti-rejection medication considering transplant status, so without ability to swallow only other way we can give this medication is by putting a nasogastric feeding tube, which can be used for medication administration as well as nutrition and hydration purpose. The patient's informed me that she remembers having discussion with the patient in the past about advance directive and he had informed her that he would not like to go on life support machine, and the patient's did communicate with the patient's daughter yesterday who lives in [place] about the Living will and she has informed me that in the event of cardiopulmonary arrest, the patient would not have wanted any CPR defibrillation or ventilator support and the patient's as well as the patient's daughter is in agreement with this decision, so I have entered DNR order in the chart. The patient had renal failure requiring dialysis and dysphagia, which prevents him to swallow his absolutely necessary medications for heart and transplant. So at this point, nasogastric tube placement and dialysis are very important part of his treatment and if the decision is made not to put the nasogastric tube, then I have strongly recommended for the patient to immediately go on hospice care and to start with in-hospital hospice care, which allows 4-5 days in the hospital and then he can transition to outpatient hospice care if he lives through that off time. I spend lot of time today explaining all these details to patient's and her 2 sisters who were present with her and she will also communicate with the patient's daughter and her son. Today, I will start IV fluid as a maintenance fluid, continue to follow with speech assistant and see how he is by tomorrow and then further decision will be made at that time depending on patient's condition as well as family's decision. I expect rapid decline without dialysis and nasogastric tube placement given current situation and all these details were discussed with the family as well. KATRIN/MODL Voice ID: [id number] Report ID: [id number] MOSHE
--- NOTE | 2023-11-06 22:00 | PN ---
Date of Progress Note: 11/06/2023 Chief Complaint: Advanced chronic kidney disease, acute kidney injury. Subjective: The patient developed altered mental status. Last night, he had anxiety and agitation a nd was medicated with Xanax. During this morning, his mentation has declined, although he was hard t o arouse but he was communicated and he was able to communicate with his and with Dr. Castellanos when he was making rounds. The patient was having Elie-Calderon breathing pattern and family currently is considering hospice status. He was somewhat unarousable after when Dr. Castellanos was making r ounds. Review of Systems: Unobtainable. Objective: Lungs: Clear to auscultation. Heart: S1, S2. Abdomen: No edema. Laboratory Data: Sodium 130, potassium 4.1, chloride 95, bicarbonate 24, BUN 90, creatinine 4.63, gl ucose 193. Impression And Plan: Coronary artery disease, acute kidney injury on advanced chronic kidney disease , pneumonia, respiratory failure, dysphagia, coronary artery disease, and ST-elevation myocardial inf arction. Patient's mentation has declined and primary team as well as family deciding about the hosp ice status. The patient was to have a tunneled dialysis catheter. Currently, procedure is on hold. The patient has a femoral catheter and received dialysis on Tuesday. He had dialysis done daily and last dialysis was done on Tuesday. He tolerated procedure. Plan is to monitor electrolytes, to check lab work in the morning and resume dialysis, pending family decision for hospice status. Hypertension, controlled, optimal. Anemia of chronic kidney disease, monitor hemoglobin level. EB/MODL Voice ID: [id number] Report ID: [id number]
[2023-11-07 10:22] VITALS: O2SAT 93
[2023-11-07 13:54] VITALS: BP 119/61; TEMP 97.2
--- NOTE | 2023-11-08 00:21 | PN ---
Date of Progress Note: 11/07/2023 Chief Complaint: Advanced chronic kidney disease, acute kidney injury. History Of Present Illness: The patient developed altered mental status. His mental condition deter iorated. Prior to that, he had episodes of anxiety and agitation and was medicated with Xanax on Oct. Dr. Castellanos was ordering Xanax for agitation. The patient was having Elie-iraheta breathing p attern and family was considering hospice status. Today, family decided to proceed with hospice and no dialysis. The patient cannot provide review of systems. He remains obtunded and confused. Impression And Plan: The patient has multiple medical problems including coronary artery disease, ac [place] kidney injury on advanced chronic kidney urine disease, pneumonia, respiratory failure, dysphagia , coronary artery disease, and ST elevation myocardial infarction. His mentation declined and overal l condition has declined. The patient was to have a tunneled dialysis catheter placed, but family de cided to proceed with hospice after they spoke with Dr. Castellanos. I spoke with the patient's and [facility] confirmed they want to proceed with hospice and no dialysis. EB/MODL Voice ID: [id number] Report ID: [id number]
--- NOTE | 2023-11-08 06:57 | DS ---
Date of Discharge: 11/07/2023 Disposition: The patient was discharged from acute medical care and was transferred to hospice care in the hospital. Objective: Vital Signs: Reviewed. HEENT: Unremarkable. Lungs: Bilateral equal air entry. Clear to auscultation. Heart: Sounds normal. Abdomen: Soft. Bowel sounds normal. No guarding, rigidity, tenderness, distention. Extremities: No leg edema. Laboratory Data: Upon admission on 10/28/2023, white count was 19.4, hemoglobin 16.3, platelets 202. Last white count on 11/04/2023 was 12.6, hemoglobin 13.8, platelets 95. Last chemistry from yester day, sodium 130, potassium 4.1, chloride 95, bicarb 24, BUN 90, creatinine 4.66, glucose 193. Upon a dmission, sodium 132, potassium 4.6, chloride 100, bicarb 17, BUN 36, creatinine 2.69, glucose 344. Initial lactic acid 5.3, repeat lactic acid 6.7. Troponin 62,451.1. Hospital Course: This is a 78-year-old pleasant male patient, who came into emergency room with naus ea, vomiting, diarrhea, shoulder pain, and shortness of breath. Please see dictated H and P for more information. The patient was admitted after the patient was evaluated in the emergency room. He wa s noted to have abnormal EKG as he was complaining of shortness of breath. EKG was done and it showe d changes of acute myocardial infarction with ST elevation and the patient was diagnosed as having ST L[facility] and [employer] was contacted, Dr. Rae, who immediately took him to cardiac cook house laborer and was able to perform coronary artery angioplasty with stent placement. After the procedure was done, the patient was brought into ICU. The patient did require vasopressor medication for short period of sarah e and IV fluid resuscitation was given to him. He continued to remain stable hemodynamically in ICU and did not require any further vasopressor medications. He did have ileus for short time, which act ually improved over period of 24 hours or so and he was tolerating diet very well. For his renal corina lure, we did consult legislative aide and unfortunately that problem continued to get worse during this h ospitalization to the extent that legislative aide recommended dialysis for this acute kidney injury whic h was initially thought to be due to cardiorenal syndrome along with contrast-induced nephropathy. T he patient had a temporary dialysis access catheter placed in the right groin, which was used for 2 s essions of his hemodialysis and his renal function continued to remain abnormal and legislative aide nara mmended PermCath placement. The patient was receiving Brilinta and aspirin due to his recent STEMI a nd I did communicate details with [employer] [facility], Dr. Rae, who informed me that the patient cannot d iscontinue his antiplatelet therapy for any reason including PermCath placement. So, general surgeon , Dr. Briseno, who was consulted also was made aware of this details and information as there will be increased risk of bleeding complications with such procedure. Also communicated with [employer] t o see if we can change from Brilinta to Plavix to achieve the same level of benefit, but less chances of bleeding and he was agreeable with that idea, so we did make that change and loading dose of Plav ix was given and maintenance dose was continued. Over the weekend, the patient's condition declined, where yesterday he started to have Elie-Calderon breathing and significantly altered level of consci ousness, where he was sleeping most of the time and was having trouble swallowing. Yesterday morning on 11/06/2023, when we noticed all these things, at least nurses were able to give him his medicatio ns, but after that, the patient did not eat or drink anything all day and I did communicate with the patient's about all these details and informed her that with the patient's recent IL, he absolut tristan has to be on his antiplatelet therapy which is Plavix and aspirin in order for us to prevent any chances of sudden occlusion of coronary artery at the stent level and massive myocardial infarction i ncluding type of complications and also he needs to take his anti-rejection medication for his liver transplant and in order for us to do that, we will have to consider placement of nasogastric tu be feeding tube and for his renal failure, we will need to pursue with PermCath placement for dialysi s. The patient's after thinking about all this and after she discussed with the patient's daugh shiraz and her son and other family member, she decided that she did not want to pursue any more dialysi s and she did not want to pursue any nasogastric tube feeding after understanding all the risk involv ed of not doing any of this intervention and she understood that rapid decline will be expected witho ut taking his antiplatelet therapy and without dialysis and all these details were discussed with her over the weekend and with that, we recommended in-hospital hospice care which she was agreeable with that and Social Service was consulted and today after we were able to finish arrangements for in-[facility] hospice care, the patient was transferred to hospice care. I also communicated with monty adams advance directive and DNR order was written in the chart per decision made by and she also informed me that in the past she had chance to talk to the patient and the patient would not have wan hakan any heroic measures like CPR, defibrillation, or ventilator support. Final Diagnoses: 1.Acute inferior wall myocardial infarction. 2.Coronary artery disease. 3.Acute kidney injury. 4.Pneumonia. 5.Acute respiratory failure with hypoxia. 6.Dysphagia. 7.End-stage renal disease. 8.Type 2 diabetes mellitus. 9.Chronic atrial fibrillation. 10.Hypertension. 11.Hyperlipidemia. 12.Acute gastroenteritis. 13.Insomnia. 14.Vascular dementia. 15.Gastroesophageal reflux disease. 16.Lumbar spondylosis. 17.Cervical spondylosis. 18.Benign prostatic hypertrophy. Total time spent today 55 minutes and I also communicated with hospice medical office manager, sarahi Keanearding details for this patient. KATRIN/MODL Voice ID: [id number] Report ID: [id number]
== END 2023-11-07 15:39 | disposition hospice, inpatient (51) | DRG 321 ==
LOC: ER 07:30 → ERHOLD 09:41 → 3RD-ICU 10:56 → 4TH 10-31 14:14
PROVIDERS: ADMIT Internal Medicine; ATTEND Internal Medicine
PROC: 027035Z Dilation of Coronary Artery, One Artery with Two Drug-eluting Intraluminal Devices, Percutaneous Approach (ICD-10-PCS; principal; 2023-10-28)
PROC: 4A023N7 Measurement of Cardiac Sampling and Pressure, Left Heart, Percutaneous Approach (ICD-10-PCS; 2023-10-28)
PROC: B2111ZZ Fluoroscopy of Multiple Coronary Arteries using Low Osmolar Contrast (ICD-10-PCS; 2023-10-28)
PROC: 0T9B70Z Drainage of Bladder with Drainage Device, Via Natural or Artificial Opening (ICD-10-PCS; 2023-10-28)
PROC: 06HY33Z Insertion of Infusion Device into Lower Vein, Percutaneous Approach (ICD-10-PCS; 2023-11-02)
PROC: 5A1D70Z Performance of Urinary Filtration, Intermittent, Less than 6 Hours Per Day (ICD-10-PCS; 2023-11-02)
PROC: 0DH67UZ Insertion of Feeding Device into Stomach, Via Natural or Artificial Opening (ICD-10-PCS; 2023-11-02)
PROC: 3E033XZ Introduction of Vasopressor into Peripheral Vein, Percutaneous Approach (ICD-10-PCS; 2023-11-02)
DX: I21.19 ST elevation (STEMI) myocardial infarction involving other coronary artery of inferior wall (principal); I50.43 Acute on chronic combined systolic (congestive) and diastolic (congestive) heart failure; J18.9 Pneumonia, unspecified organism; N17.0 Acute kidney failure with tubular necrosis; N18.6 End stage renal disease; R57.1 Hypovolemic shock; J96.01 Acute respiratory failure with hypoxia; Z94.4 Liver transplant status; E87.20 Acidosis, unspecified; N39.0 Urinary tract infection, site not specified; I48.20 Chronic atrial fibrillation, unspecified; E87.1 Hypo-osmolality and hyponatremia; K56.699 Other intestinal obstruction unspecified as to partial versus complete obstruction; F01.511 Vascular dementia, unspecified severity, with agitation; F01.54 Vascular dementia, unspecified severity, with anxiety; I13.2 Hypertensive heart and chronic kidney disease with heart failure and with stage 5 chronic kidney disease, or end stage renal disease; E11.22 Type 2 diabetes mellitus with diabetic chronic kidney disease; D63.1 Anemia in chronic kidney disease; D69.6 Thrombocytopenia, unspecified; E87.5 Hyperkalemia; E87.6 Hypokalemia; E78.5 Hyperlipidemia, unspecified; G47.00 Insomnia, unspecified; K52.9 Noninfective gastroenteritis and colitis, unspecified; N28.1 Cyst of kidney, acquired; M47.892 Other spondylosis, cervical region; M47.896 Other spondylosis, lumbar region; K21.9 Gastro-esophageal reflux disease without esophagitis; N40.0 Benign prostatic hyperplasia without lower urinary tract symptoms; E66.01 Morbid (severe) obesity due to excess calories; I25.10 Atherosclerotic heart disease of native coronary artery without angina pectoris; Z66 Do not resuscitate; Z51.5 Encounter for palliative care; Z99.2 Dependence on renal dialysis; Z68.32 Body mass index [BMI] 32.0-32.9, adult; Z79.82 Long term (current) use of aspirin; Z11.52 Encounter for screening for COVID-19; Z85.05 Personal history of malignant neoplasm of liver; Z90.49 Acquired absence of other specified parts of digestive tract; Z79.899 Other long term (current) drug therapy; Z91.158 Patient's noncompliance with renal dialysis for other reason
CPT/HCPCS: 36415; 71045; 74018; 76770; 76937; 80048; 80053; 80061; 80197; 81001; 82533; 82565; 82570; 82947; 83036; 83605; 83735; 83880; 83935; 84132; 84156; 84300; 84443; 84484; 85025; 85347; 85610; 85730; 86704; 86706; 87040; 87086; 87088; 87324; 87340; 87804; 87811; 90935; 92941; 93005; 93306; 93454; 96374; 97161; 97530; 99152; 99153; 99285; C1725; C1893; C9600; J0153; J0461; J1327; J1644; J1940; J2001; J2250; J2371; J2405; J2543; J3010; J3475; J7030; J7040; J7042; J7060; P9047; Q9967

== ENCOUNTER 2023-11-07 15:47 | Inpatient (IN) | payer OTHER ==
[2023-11-07 15:58] VITALS: BMI 32.2
[2023-11-07] MEDS ORDERED: HYDROMORPHONE HCL 1 MG/ML INJ IV PRN (16:08)
[2023-11-07] MEDS ORDERED: BISACODYL 10 MG RECTAL SUPP PR PRN (16:48)
[2023-11-07] MEDS: HYDROMORPHONE HCL 1 MG/ML INJ IV SCH (16:55)
[2023-11-07] MEDS: LORazepam 2 MG/ML VIAL IV SCH (18:01)
--- NOTE | 2023-11-07 21:57 | P.HP ---
Patient History Date of Service: 11/07/23 Reason for admission: HOSPICE OR RENAL FAILURE History of Present Illness: MR CROUCH IS A LIVER TRANSPLANT PATIENT FOR LIVER CANCER YEARS AGO COMES WITH GASTROENTERITIS SYMPTOMS AND WAS FOUND TO HAVE INF. ST ELEVATION. PATIENT HAD CATH DONE AND HAD RCA STENT PLACED. HE ALREADY HAS CKD AND HE WENT INTO ACUTE RNEAL FAILURE. HE HAD TWO DAYS OF HEMODIALYSIS. HE DID NOT RECOVER. HE STARTED TO HAVE RESPIRATORY FAILURE. FAMILY DECIDED TO GET HIM ON INPATIENT HOSPICE CARE HE IS BED BOUND AND RAPIDLY DECLINING. I TALKED TO FAMILY AND ASSURED COMFORT CARE. Allergies No Known Allergies Allergy (Unverified 06/21/12 13:29) Home Medications: Amlodipine [Norvasc] 10 mg PO BEDTIME 04/07/21 Everolimus 1 mg PO BID 04/07/21 Gabapentin 300 mg PO BID 04/07/21 Losartan Potassium 50 mg PO DAILY 04/07/21 Omeprazole [Prilosec] 40 mg PO DAILY 04/07/21 Tacrolimus 1 mg PO BID 04/07/21 Ascorbic Acid [Vitamin C*] 1 tab PO BID 10/28/23 Atorvastatin Calcium [Lipitor*] 40 mg PO BEDTIME 10/28/23 Calcium Carbonate [Calcium] 1 tab PO NOON 10/28/23 Cetirizine HCl [Zyrtec*] 5 mg PO DAILY 10/28/23 Donepezil [Aricept*] 1 tab PO BEDTIME 10/28/23 Dulaglutide [Trulicity] 1 stick SQ EVERY 7TH DAY 10/28/23 Escitalopram [Lexapro*] 20 mg PO DAILY 10/28/23 Metoprolol Tartrate [Lopressor*] 50 mg PO BID 10/28/23 Peptiva 1 cap PO BEDTIME 10/28/23 Simethicone [Gas Relief] 2 tab PO DAILY AT SUPPER 10/28/23 Spironolactone [Aldactone*] 25 mg PO NOON 10/28/23 Vitamin D3/Vitamin K2 (Mk4) [K2 Plus D3 Tablet] 1 tab PO DAILY 6PM 10/28/23 - Past Medical/Surgical History Diabetic: Yes -: afib -: gerd -: liver transplant for liver cancer from hepatitis C many years ago. -: anxiety -: hep c -: sleep apnea -: depression -: anemia -: ckd -: liver transplant -: cholecystectomy - Social History Smoking Status: Never smoker Alcohol use: No CD- Drugs: No Caffeine use: No Place of Residence: Home Physical Examination - Vital Signs Temperature: 97.4 F Blood Pressure: 108/59 Pulse: 32 Respirations: 18 Pulse Ox (%): 95 - Physical Exam General: Oriented x2, Moderate distress, Other (deep breathing with pauses.) HEENT: Atraumatic Neck: Supple Cardiovascular: No edema, Abnormal S1 S2 Gastrointestinal: No tenderness Assessment and Plan - Problems (Diagnosis) (1) Acute renal failure superimposed on chronic kidney disease Current Visit: Yes Status: Acute Plan: MR. CROUCH IS IN ACUTE DISTRESS WITH MULTISYSTEM ISSUES NOW. HE IS OFF HD NOW ON COMFORT CARE. Orders (last 24 hrs) 11/07/23 16:48 Bisacodyl [Dulcolax] 10 mg SD PRN PRN 11/07/23 17:00 Hydromorphone [Dilaudid] 1 mg IV Q3H 11/07/23 18:00 LORazepam [Ativan] 1 mg IV Q3HR Qualifiers: Chronic kidney disease stage: stage 5, not on chronic dialysis (2) Liver transplant recipient Current Visit: No Status: Acute (3) STEMI (ST elevation myocardial infarction) Current Visit: No Status: Acute - Advance Directives Does patient have a Living Will: No Does patient have a Durable POA for Healthcare: No
[2023-11-08] MEDS: ATROPINE 1% OPTH DROPS 5ML SL PRN (15:46)
--- NOTE | 2023-11-08 17:42 | P.PN ---
Subjective Date of Service: 11/08/23 Chief Complaint: HOSPICE OR RENAL FAILURE Subjective: Worsening HE IS WORSE, HAS LONG PAUSES IN BREATHING. HE IS OXYGEN. I TALKED TO FAMILY AND THEY AGREED TO STOP OXYGEN IT WAS PROLONGING HIS AGONY. Review of Systems is unable to be obtained Physical Examination - Vital Signs Temperature: 96.8 F Blood Pressure: 86/48 Pulse: 28 Respirations: 6 Pulse Ox (%): 88 - Physical Exam General: Moderate distress, Comatose HEENT: Atraumatic, PERRLA, EOMI Neck: Supple, JVD not distended Respiratory: Clear to auscultation bilaterally, Normal air movement Cardiovascular: Regular rate/rhythm, Normal S1 S2 Gastrointestinal: Normal bowel sounds, No tenderness Musculoskeletal: No tenderness Integumentary: No rashes Lymphatics: No axilla or inguinal lymphadenopathy - Studies Medications List Reviewed: Yes Assessment And Plan - Current Problems (Diagnosis) (1) Acute renal failure superimposed on chronic kidney disease Current Visit: Yes Status: Acute Plan: MR. CROUCH IS IN ACUTE DISTRESS WITH MULTISYSTEM ISSUES NOW. HE IS OFF HD NOW ON COMFORT CARE. Orders (last 24 hrs) 11/07/23 16:48 Bisacodyl [Dulcolax] 10 mg TN PRN PRN 11/07/23 17:00 Hydromorphone [Dilaudid] 1 mg IV Q3H 11/07/23 18:00 LORazepam [Ativan] 1 mg IV Q3HR HOSPICE CARE CONTINUED FAMILY IS SATISFIED WITH HIS COMFORT IN COMATOSE STATE. Qualifiers: Chronic kidney disease stage: stage 5, not on chronic dialysis (2) Liver transplant recipient Current Visit: No Status: Acute (3) STEMI (ST elevation myocardial infarction) Current Visit: No Status: Acute
[2023-11-08 22:04] VITALS: BP 67/39; TEMP 97.6
[2023-11-09 00:28] VITALS: O2SAT 88
--- NOTE | 2023-11-09 12:58 | P.DS ---
Admission Date: 11/07/23 Discharge Date: 11/09/23 Disposition: Discharge Condition: Reason for Admission: HOSPICE OR RENAL FAILURE - Problems (1) Acute renal failure superimposed on chronic kidney disease Status: Acute Qualifiers: Chronic kidney disease stage: stage 5, not on chronic dialysis (2) Liver transplant recipient Status: Acute (3) STEMI (ST elevation myocardial infarction) Status: Acute Brief History of Present Illness: MR CRUOCH IS A LIVER TRANSPLANT PATIENT FOR LIVER CANCER YEARS AGO COMES WITH GASTROENTERITIS SYMPTOMS AND WAS FOUND TO HAVE INF. ST ELEVATION. PATIENT HAD CATH DONE AND HAD RCA STENT PLACED. HE ALREADY HAS CKD AND HE WENT INTO ACUTE RNEAL FAILURE. HE HAD TWO DAYS OF HEMODIALYSIS. HE DID NOT RECOVER. HE STARTED TO HAVE RESPIRATORY FAILURE. FAMILY DECIDED TO GET HIM ON INPATIENT HOSPICE CARE HE IS BED BOUND AND RAPIDLY DECLINING. I TALKED TO FAMILY AND ASSURED COMFORT CARE. Hospital Course: MR CROUCH WHO WAS ON HOSPICE FOR ACUTE RENAL FAILURE AND MANY OTHER MEDICAL ISSUES EXPECTED LAST NIGHT. HE WAS KEPT COMFORTABLE IN THE PROCESS. Vital Signs/Physical Exam: Temp Pulse Resp BP Pulse Ox 97.6 F 38 L 6 L 67/39 L 88 L 11/08/23 20:00 11/08/23 20:00 11/08/23 20:25 11/08/23 20:00 11/08/23 17:41 Home Medications: Amlodipine [Norvasc] 10 mg PO BEDTIME 04/07/21 Everolimus 1 mg PO BID 04/07/21 Gabapentin 300 mg PO BID 04/07/21 Losartan Potassium 50 mg PO DAILY 04/07/21 Omeprazole [Prilosec] 40 mg PO DAILY 04/07/21 Tacrolimus 1 mg PO BID 04/07/21 Ascorbic Acid [Vitamin C*] 1 tab PO BID 10/28/23 Atorvastatin Calcium [Lipitor*] 40 mg PO BEDTIME 10/28/23 Calcium Carbonate [Calcium] 1 tab PO NOON 10/28/23 Cetirizine HCl [Zyrtec*] 5 mg PO DAILY 10/28/23 Donepezil [Aricept*] 1 tab PO BEDTIME 10/28/23 Dulaglutide [Trulicity] 1 stick SQ EVERY 7TH DAY 10/28/23 Escitalopram [Lexapro*] 20 mg PO DAILY 10/28/23 Metoprolol Tartrate [Lopressor*] 50 mg PO BID 10/28/23 Peptiva 1 cap PO BEDTIME 10/28/23 Simethicone [Gas Relief] 2 tab PO DAILY AT SUPPER 10/28/23 Spironolactone [Aldactone*] 25 mg PO NOON 10/28/23 Vitamin D3/Vitamin K2 (Mk4) [K2 Plus D3 Tablet] 1 tab PO DAILY 6PM 10/28/23 Followup: Eloy Parks MD [Primary Care Provider] -
== END 2023-11-09 00:10 | disposition expired | DRG 682 ==
LOC: 4TH 15:47
PROVIDERS: ADMIT Internal Medicine; ATTEND Internal Medicine
DX: N17.9 Acute kidney failure, unspecified (principal); I21.4 Non-ST elevation (NSTEMI) myocardial infarction; Z94.4 Liver transplant status; N18.5 Chronic kidney disease, stage 5; I48.91 Unspecified atrial fibrillation; K52.9 Noninfective gastroenteritis and colitis, unspecified; K21.9 Gastro-esophageal reflux disease without esophagitis; Z74.01 Bed confinement status; Z99.2 Dependence on renal dialysis; Z85.05 Personal history of malignant neoplasm of liver; Z95.5 Presence of coronary angioplasty implant and graft; Z79.899 Other long term (current) drug therapy; Z90.49 Acquired absence of other specified parts of digestive tract
CPT/HCPCS: J1170